=== PATIENT | female | born 1980 | race African-American/Black ===

== ENCOUNTER → 2016-03-19 | Outpatient (REF) | payer OTHER ==
[~2016-03-19] MED LIST: PERC5TAB6 PO; ibuprofen OR; iron OR; multivitamins OR
== END ==
LOC: M SFHCPLAZ 17:01
PROVIDERS: ATTEND Nurse Practitioner Family
DX: A60.04 Herpesviral vulvovaginitis (principal)

== ENCOUNTER → 2016-03-26 | Outpatient (REF) | payer OTHER ==
[2016-03-26 12:34] LABS: ALBUMIN 3.6 GM/DL (3.2-5.2); ALBUMIN/GLOBULIN RATIO 1.06 (1.00-1.93); ALKALINE PHOSPHATASE 122 U/L (45-117); ALT/SGPT 15 U/L (12-78); ANION GAP 9 MEQ/L (8-16); AST/SGOT 12 U/L (15-37); BILIRUBIN,TOTAL 0.2 MG/DL (0.2-1.0); BLOOD UREA NITROGEN 10 MG/DL (7-18); CALCIUM LEVEL 9.4 MG/DL (8.5-10.1); CARBON DIOXIDE LEVEL 28 MEQ/L (21-32); CHLORIDE LEVEL 100 MEQ/L (98-107); CHOLESTEROL LEVEL 127 MG/DL (<200); CREATININE FOR GFR 0.64 MG/DL (0.55-1.02); GLOMERULAR FILTRATION RATE > 60.0 (>60); GLUCOSE, FASTING 303 MG/DL (70-105); POTASSIUM SERUM 4.4 MEQ/L (3.5-5.1); SODIUM LEVEL 137 MEQ/L (136-145); TRIGLYCERIDES LEVEL 131 MG/DL (<150)
[2016-03-26 15:24] LABS: HIV SCRN NEGATIVE (NEGATIVE); HIV SCRN1 NEGATIVE (NEGATIVE)
[2016-03-26 15:25] LABS: CONTROL LINE INT CTR LINE PRESENT
== END ==
LOC: M SFHCPLAZ 08:29
PROVIDERS: ATTEND Nurse Practitioner Family
DX: E11.9 Type 2 diabetes mellitus without complications (principal); E78.5 Hyperlipidemia, unspecified; A60.04 Herpesviral vulvovaginitis; R35.0 Frequency of micturition

== ENCOUNTER → 2016-10-15 | Outpatient (REF) | payer OTHER ==
[~2016-10-15] MED LIST changes: +PERC5TAB12 PO; -PERC5TAB6 PO
[2016-10-15 12:11] LABS: ALBUMIN 3.7 GM/DL (3.2-5.2); ALBUMIN/GLOBULIN RATIO 1.03 (1.00-1.93); ALKALINE PHOSPHATASE 100 U/L (45-117); ALT/SGPT 14 U/L (12-78); ANION GAP 10 MEQ/L (8-16); AST/SGOT 9 U/L (15-37); BILIRUBIN,TOTAL 0.4 MG/DL (0.2-1.0); BLOOD UREA NITROGEN 11 MG/DL (7-18); CALCIUM LEVEL 8.9 MG/DL (8.5-10.1); CARBON DIOXIDE LEVEL 25 MEQ/L (21-32); CHLORIDE LEVEL 101 MEQ/L (98-107); CHOLESTEROL LEVEL 124 MG/DL (<200); CREATININE FOR GFR 0.61 MG/DL (0.55-1.02); GLOMERULAR FILTRATION RATE > 60.0 (>60); GLUCOSE, FASTING 251 MG/DL (70-105); SODIUM LEVEL 136 MEQ/L (136-145); TOTAL PROTEIN 7.3 GM/DL (6.4-8.2); TRIGLYCERIDES LEVEL 78 MG/DL (<150)
[2016-10-15 12:23] LABS: BASO % 0.5 % (0.0-1.0); EOS # 0.2 K/mm3 (0.0-0.50); EOS % 3.8 % (0.0-3.0); LARGE UNSTAINED CELL # 0.1 K/mm3 (0.0-0.4); LARGE UNSTAINED CELL % 1.4 % (0.0-4.0); LYMPH # 1.9 K/mm3 (1.5-4.5); LYMPH % 31.4 % (24.0-44.0); MEAN CORPUSCULAR HEMOGLOBIN 29.3 pg (27.0-33.0); MEAN CORPUSCULAR HGB CONC 33.6 g/dl (32.0-36.5); MEAN CORPUSCULAR VOLUME 87.3 fl (80.0-96.0); MONO # 0.4 K/mm3 (0.0-0.8); MONO % 7.1 % (0.0-5.0); NEUTROPHILS # 3.3 K/mm3 (1.8-7.7); NEUTROPHILS % 55.8 % (36.0-66.0); PLATELET COUNT, AUTOMATED 249 k/mm3 (150-450); RED CELL DISTRIBUTION WIDTH 12.1 % (11.5-14.5); WHITE BLOOD COUNT 5.9 K/mm3 (4.0-10.0)
== END ==
LOC: M SFHCPLAZ 07:55
PROVIDERS: ATTEND Nurse Practitioner Family
DX: E66.01 Morbid (severe) obesity due to excess calories (principal); R60.9 Edema, unspecified; E11.9 Type 2 diabetes mellitus without complications; E78.5 Hyperlipidemia, unspecified

== ENCOUNTER → 2016-11-16 | Outpatient (CLI) | payer OTHER ==
--- NOTE | 2016-11-16 16:00 | REP ---
Clinical: Pain with recent trauma. The technique: AP, lateral, bilateral oblique and sunrise views of the left knee. Findings: Age-related changes are appreciated as well as exostosis along the medial aspect of the proximal tibial metaphysis. There is no evidence for acute fracture or dislocation. No definite effusion. Impression: Age-related degenerative changes. No acute fracture or dislocation. Exostosis from the medial tibial metaphysis. Signed by Dereck Henley MD 11/16/2016 03:52 P
== END ==
LOC: M SMT 14:47
PROVIDERS: ATTEND Physician Assistant
DX: M25.562 Pain in left knee (principal); M25.762 Osteophyte, left knee

== ENCOUNTER → 2017-03-03 | Outpatient (REF) | payer OTHER ==
[2017-03-03 13:54] LABS: ESTIMATED AVERAGE GLUCOSE 240 MG/DL (60-110)
== END ==
LOC: M SFHCPLAZ 10:59
DX: E11.9 Type 2 diabetes mellitus without complications (principal)

== ENCOUNTER → 2017-07-05 | Outpatient (REF) ==
[2017-07-05 11:59] LABS: HEPATITIS B SURFACE ANTIBODY NEGATIVE (POSITIVE)
== END ==
LOC: M LAB 10:55
DX: Z00.00 Encounter for general adult medical examination without abnormal findings (principal)

== ENCOUNTER → 2017-07-23 | Outpatient (REF) | payer OTHER ==
[2017-07-23 13:04] LABS: ANION GAP 7 MEQ/L (8-16); BLOOD UREA NITROGEN 10 MG/DL (7-18); CALCIUM LEVEL 8.8 MG/DL (8.5-10.1); CARBON DIOXIDE LEVEL 26 MEQ/L (21-32); CHLORIDE LEVEL 103 MEQ/L (98-107); CREATININE FOR GFR 0.56 MG/DL (0.55-1.30); GLOMERULAR FILTRATION RATE > 60.0 (>60); GLUCOSE, FASTING 264 MG/DL (70-100); POTASSIUM SERUM 4.1 MEQ/L (3.5-5.1); SODIUM LEVEL 136 MEQ/L (136-145)
[2017-07-23 13:26] LABS: ESTIMATED AVERAGE GLUCOSE 243 MG/DL (60-110); HEMOGLOBIN A1c 10.1 %
== END ==
LOC: M SFHCPLAZ 10:08
DX: E11.9 Type 2 diabetes mellitus without complications (principal)
CPT/HCPCS: 83036

== ENCOUNTER → 2017-10-07 | Outpatient (CLI) | payer OTHER | LOC: M WHC 08:55 | DX: Z12.31 Encounter for screening mammogram for malignant neoplasm of breast (principal) | CPT/HCPCS: 77067 ==

== ENCOUNTER 2018-06-04 21:34 | Emergency (ER) | payer OTHER ==
[~2018-06-04] VITALS: Ht 167.6 cm; Wt 125.5 kg
[2018-06-04 21:34] VITALS: BP 130/70
[2018-06-04] MEDS ORDERED: TOUJ1.2I (21:39)
[2018-06-04] MEDS ORDERED: METF10004 (21:39)
[2018-06-04] MEDS ORDERED: ASPI1CHW2 (21:39)
[2018-06-04] MEDS ORDERED: LISI-1046 (21:39)
[2018-06-04] MEDS ORDERED: AUGM875T28 PO (23:23)
[2018-06-04] MEDS ORDERED: AUGMENTIN 875 MG TAB PO ONE (23:30)
== END 2018-06-04 23:30 | disposition home or self-care (01) ==
LOC: M ED 21:34
DX: T81.31XA Disruption of external operation (surgical) wound, not elsewhere classified, initial encounter (principal); Y92.9 Unspecified place or not applicable; Y93.9 Activity, unspecified; E11.9 Type 2 diabetes mellitus without complications; I10 Essential (primary) hypertension; Z79.82 Long term (current) use of aspirin; Z79.899 Other long term (current) drug therapy; Z79.84 Long term (current) use of oral hypoglycemic drugs; Z88.8 Allergy status to other drugs, medicaments and biological substances

== ENCOUNTER 2018-08-07 19:57 | Inpatient (IN) | payer OTHER ==
[~2018-08-07] VITALS: Ht 170.2 cm; Wt 125.3 kg
[~2018-08-07 19:57] MED LIST changes: +ASPI1CHW2 PO; +AUGM875T28 PO; +LISI-1046 PO; +METF10004 PO; +TOUJ1.2I SC
[2018-08-07 20:44] LABS: BASO # 0.1 10^3/uL (0.0-0.2); BASO % 0.3 % (0.0-1.0); EOS % 0.1 % (0.0-3.0); HEMATOCRIT 36.7 % (36.0-47.0); HEMOGLOBIN 12.6 g/dl (12.0-15.5); LYMPH # 1.3 10^3/uL (1.5-4.5); LYMPH % 7.3 % (24.0-44.0); MEAN CORPUSCULAR HEMOGLOBIN 29.7 pg (27.0-33.0); MEAN CORPUSCULAR HGB CONC 34.3 g/dl (32.0-36.5); MEAN CORPUSCULAR VOLUME 86.6 fl (80.0-96.0); MONO # 1.3 10^3/uL (0.0-0.8); MONO % 7.4 % (0.0-5.0); NEUTROPHILS # 14.5 10^3/uL (1.8-7.7); NEUTROPHILS % 84.4 % (36.0-66.0); PLATELET COUNT, AUTOMATED 238 10^3/uL (150-450); RED BLOOD COUNT 4.24 10^6/uL (4.00-5.40); WHITE BLOOD COUNT 17.2 10^3/uL (4.0-10.0)
[2018-08-07 21:06] LABS: ALBUMIN 3.7 GM/DL (3.2-5.2); ALT/SGPT 15 U/L (12-78); BILIRUBIN,DIRECT 0.2 MG/DL (0.0-0.2); BILIRUBIN,TOTAL 0.7 MG/DL (0.2-1.0); BLOOD UREA NITROGEN 8 MG/DL (7-18); CALCIUM LEVEL 9.1 MG/DL (8.5-10.1); CARBON DIOXIDE LEVEL 28 MEQ/L (21-32); CHLORIDE LEVEL 95 MEQ/L (98-107); GLOMERULAR FILTRATION RATE > 60.0 (>60); GLUCOSE, FASTING 340 MG/DL (70-100); LIPASE 59 U/L (73-393); POTASSIUM SERUM 4.2 MEQ/L (3.5-5.1); SODIUM LEVEL 132 MEQ/L (136-145); TOTAL PROTEIN 7.2 GM/DL (6.4-8.2)
[2018-08-07] MEDS ORDERED: NS 1,000 ML IV ONE (21:45)
[2018-08-07] MEDS ORDERED: KETOROLAC 30 MG/ML VIAL (J1885) IV ONE (21:45)
[2018-08-07 22:02] LABS: INFLUENZA A AMPLIFICATION NEGATIVE (NEGATIVE); INFLUENZA B AMPLIFICATION NEGATIVE (NEGATIVE)
[2018-08-07 22:09] LABS: VENOUS BASE EXCESS 0.1 (-2.0-2.0); VENOUS HCO3 24.1 MEQ/L (23.0-27.0); VENOUS O2 SATURATION 87.5 % (60.0-80.0); VENOUS PARTIAL PRESSURE CO2 36.9 mmHg (38.0-50.0); VENOUS PARTIAL PRESSURE O2 51.7 mmHg (30.0-50.0); VENOUS PH 7.432 UNITS (7.330-7.430); VENOUS STANDARD HCO3 24.3 MEQ/L; VENOUS TOTAL CO2 25.2 MEQ/L (24.0-28.0)
[2018-08-07 22:26] LABS: MONO REFLEX EBV COMP NEGATIVE (NEGATIVE)
[2018-08-07] MEDS ORDERED: ACETAMINOPHEN TAB 650MG DOSE (2X325MG) PO ONE (22:30)
--- NOTE | 2018-08-07 22:51 | REPVR ---
EXAM: CT Abdomen and Pelvis Without Contrast EXAM DATE/TIME: 08/07/2018 9:39 PM CLINICAL HISTORY: 37 years old, female; Abdominal pain; Flank; Left; Additional info: Flank pain, urinary complaints TECHNIQUE: Imaging protocol: Axial computed tomography images of the abdomen and pelvis without contrast. Coronal and sagittal reformatted images were created and reviewed. Radiation optimization: All CT scans at this facility use at least one of these dose optimization techniques: automated exposure control; mA and/or kV adjustment per patient size (includes targeted exams where dose is matched to clinical indication); or iterative reconstruction. COMPARISON: CT ABD PELVIS W/O FOL BY WIT 02/21/2015 9:35 AM FINDINGS: Mediastinum: Small hiatal hernia. ABDOMEN: Liver: Mild hepatomegaly. Gallbladder and bile ducts: No radiodense gallstones. No biliary ductal dilatation. Pancreas: Unremarkable. Spleen: Mild splenomegaly. Adrenals: Mild nonspecific bilateral adrenal thickening, likely secondary to benign hyperplasia. Kidneys and ureters: Mild nonspecific bilateral perinephric stranding. 1.1 cm left renal cyst. No radiodense calculi. No hydronephrosis. Stomach and bowel: Moderate amount of retained stool in the colon. No obstruction. No bowel wall thickening. No pneumatosis. Appendix: Appendix not identified with certainty but no right lower quadrant inflammatory change to suggest acute appendicitis. PELVIS: Bladder: Mild circumferential urinary bladder wall thickening, possibly secondary to underdistention. Reproductive: Unremarkable. ABDOMEN and PELVIS: Intraperitoneal space: No free fluid. No organized fluid collection. No free air. Bones/joints: No acute osseous abnormality. Mild degenerative changes. Soft tissues: Small, fat-containing umbilical hernia. Vasculature: Unremarkable. No aneurysm. Lymph nodes: No pathologically enlarged lymph nodes. Other findings: Elevated right hemidiaphragm. IMPRESSION: 1. Limited noncontrast examination without CT evidence of urolithiasis. 2. Mild circumferential urinary bladder wall thickening, possibly secondary to underdistention. Correlate with urinalysis to exclude cystitis. 3. Mild nonspecific bilateral perinephric stranding. Infection/pyelonephritis cannot be excluded without intravenous contrast. 4. Additional findings, as above. Electronically signed by: Varun Hughes On 08/07/2018 22:50:34 PM
[2018-08-07] MEDS ORDERED: PIPERACILLIN/TAZOBACTAM SOD 3.375 GM in D5W MINI-BAG PLUS 50 ML IV ONE (23:00)
--- NOTE | 2018-08-07 23:08 | HPEPDOC ---
General Date of Admission Date of Service: Aug 07, 2018 Chief Complaint The patient is a 37-year-old female admitted with a reason for visit of Back Pain. Source: Patient, RN/MD, Old records History of Present Illness Ms. Metz is a 37 years old woman who presents to ER with c/o fever, chills, generalized weakness, dysuria, frequency, bilateral flank pain, and sore throat. Pt c/o pain on swallowing solid food, but is not drooling or having any respiratory problems. Pt has hx/u UTI and complications in the past. In the ER, pt had normal BP and mental status, with mild sinus tachycardia in the range of 110-120/min; fever of 101.9F. WBC 17.2. CT abd: mild perinephric stranding b/l and urinary bladder wall thickening consistent with cystitis. Lactate and renal fx are normal. Throat swab was positive for Strep A. 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 BOB, UROLOGY UMBILICAL HERNIA ONE ABN PAP/COLP WNL 2012 REENA ON NOCTURNAL POLYSOMNOGRAPHY IN 2016; DIDN'T F/U WITH PULM ALLERGIES OXYBUTYNIN: DIZZINESS/CELLULOID TRIMMER RESPONSE: SIDE EFFECTS SURGICAL HISTORY APPENDECTOMY AGE 7 MONTHS D&C AFTER SABS CERVICAL CERCLAGE X 2 C SECTION X 2 2006,2008 TUBAL LIGATION 2009 HYSTERECTOMY-PARTIAL, FOR FIBROIDS - DR. TALBERT 09/2014 STENT URETHRAL-DR. BOB 11/2014 Family History Significant Family History: No pertinent family hx Social History * Smoker: current smoker Alcohol: Denies Drugs: denies A-FIB/CHADSVASC A-FIB History Current/History of A-Fib/PAF?: No Review of Systems Constitutional: Reports: Chills, Fever, Malaise, Weakness, Fatigue; Denies: Lethargy Eyes: Denies: Pain ENT: Reports: Sore Throat; Denies: Head Aches Skin: Denies: Rash, Lesions Pulmonary: Denies: Dyspnea, Cough Cardiovascular: Denies: Chest Pain, Edema Gastrointestinal: Denies: Nausea, Vomiting, Abdominal Pain, Diarrhea, Constipation Genitourinary: Reports: Dysuria, Frequency; Denies: Hematuria Musculoskeletal: Reports: Back Pain; Denies: Neck Pain Neurological: Reports: Weakness; Denies: Change in speech, Confusion Psych: Reports: Mood Normal; Denies: Anxiety Physical Examination General Exam: Positive: Alert, Cooperative, No Acute Distress Eye Exam: Positive: PERRLA ENT Exam: Positive: Atraumatic, Other ENT (enlarged tonsils b/l with erythema and exudate) Neck Exam: Positive: Supple; Negative: JVD Chest Exam: Positive: Clear to auscultation, Normal air movement Heart Exam: Positive: Rate Normal, Regular Rhythm Abdomen Exam: Positive: Normal bowel sounds, Soft; Negative: Tenderness Extremity Exam: Positive: Normal pulses; Negative: Edema Skin Exam: Negative: Nl turgor and temperature, Rash, Breakdown Neuro Exam: Positive: Normal Speech, Strength at 5/5 X4 ext, Normal Tone Psych Exam: Positive: Mental status NL, Mood NL Vital Signs Vital Signs Date Time Temp Pulse Resp B/P (MAP) Pulse Ox O2 Delivery O2 Flow Rate FiO2 08/07/18 22:26 101.9 08/07/18 20:50 08/07/18 19:57 112 16 98 Room Air Laboratory Data Labs 24H Laboratory Tests 2 08/07/18 20:33: Urine Color YELLOW, Urine Appearance CLEAR, Urine pH 5.0, Urine Specific [place] 1.040, Urine Protein NEGATIVE, Urine Glucose (UA) 3+H, Urine Ketones 1+H, Urine Blood NEGATIVE, Urine Nitrite NEGATIVE, Urine Bilirubin NEGATIVE, Urine Urobilinogen 4.0H, Urine Leukocyte Esterase 1+H, Urine WBC (Auto) 17H, Urine RBC (Auto) 3, Urine Hyaline Casts (Auto) 0, Urine Bacteria (Auto) NEGATIVE, Urine Squamous Epithelial Cells 0, Urine Mucus (Auto) SMALL, Urine Sperm (Auto) 08/07/18 20:38: Immature Granulocyte % (Auto) 0.5, White Blood Count 17.2H, Red Blood Count 4.24, Hemoglobin 12.6, Hematocrit 36.7, Mean Corpuscular Volume 86.6, Mean Corpuscular Hemoglobin 29.7, Mean Corpuscular Hemoglobin Concent 34.3, Red Cell Distribution Width 11.5, Platelet Count 238, Neutrophils (%) (Auto) 84.4H, Lymphocytes (%) (Auto) 7.3L, Monocytes (%) (Auto) 7.4H, Eosinophils (%) (Auto) 0.1, Basophils (%) (Auto) 0.3, Neutrophils # (Auto) 14.5H, Lymphocytes # (Auto) 1.3L, Monocytes # (Auto) 1.3H, Eosinophils # (Auto) 0.0, Basophils # (Auto) 0.1, Nucleated Red Blood Cells % (auto) 0.0, Anion Gap 9, Glomerular Filtration Rate > 60.0, Calcium Level 9.1, Aspartate Amino Transf (AST/SGOT) 9, Alanine Aminotransferase (ALT/SGPT) 15, Alkaline Phosphatase 104, Total Bilirubin 0.7, Direct Bilirubin 0.2, Total Protein 7.2, Albumin 3.7, Albumin/Globulin Ratio 1.06, Lipase 59L 08/07/18 20:40: Influenza Type A (RT-PCR) NEGATIVE, Influenza Type B (RT-PCR) NEGATIVE 08/07/18 21:40: Lactic Acid Level 1.2, Monoscreen NEGATIVE 08/07/18 21:43: Blood Gas Bicarbonate Standard 24.3, Venous Blood pH 7.432H, Venous Blood Partial Pressure CO2 36.9L, Venous Blood Partial Pressure O2 51.7H, Venous Blood Total Carbon Dioxide 25.2, Venous Blood HCO3 24.1, Venous Blood Oxygen Satura tion 87.5H, Venous Blood Base Excess 0.1 CBC/BMP Laboratory Tests 08/07/18 20:38 Red Blood Count 4.24, Mean Corpuscular Volume 86.6, Mean Corpuscular Hemoglobin 29.7, Mean Corpuscular Hemoglobin Concent 34.3, Red Cell Distribution Width 11.5, Neutrophils (%) (Auto) 84.4 H, Lymphocytes (%) (Auto) 7.3 L, Monocytes (%) (Auto) 7.4 H, Eosinophils (%) (Auto) 0.1, Basophils (%) (Auto) 0.3, Neutrophils # (Auto) 14.5 H, Lymphocytes # (Auto) 1.3 L, Monocytes # (Auto) 1.3 H, Eosinophils # (Auto) 0.0, Basophils # (Auto) 0.1 Microbiology Microbiology 08/07/18 Blood Culture, Received Pending 08/07/18 Blood Culture, Received Pending 08/07/18 Urine Culture, Received Pending Assessment/Plan 1. Bilateral Pyelonephritis and Cystitis without Complication 2. Strep A Pharyngitis/ Tonsillitis 3. IDDM-2, Uncontrolled - Admit to inpatient - IV Zosyn, IV fluid - F/U blood and urine c/s - Monitor signs of sepsis - Levemir and SSI Plan / VTE VTE Prophylaxis Ordered?: Yes Plan Anticipated Discharge: Home REAGAN POTTS MD Aug 07, 2018 23:08
[2018-08-07] MEDS ORDERED: SODIUM CHLORIDE 0.9% 1000ML IV ONE (23:15)
[2018-08-07] MEDS ORDERED: GLUCOSE 4 GM CHEW TABLET PO PRN (23:30)
[2018-08-07] MEDS ORDERED: DEXTROSE 50% 50 ML SYRINGE IV PRN (23:30)
[2018-08-07] MEDS ORDERED: ONDANSETRON 4MG/2ML VIAL (J2405) IV PRN (23:30)
[2018-08-07] MEDS ORDERED: GLUCAGON FOR INJ 1 MG VIAL (J1610) SC PRN (23:30)
[2018-08-08] VITALS (7 sets, daily range): BP systolic 126–142; BP diastolic 69–88
[2018-08-08] MEDS: NS 1,000 ML IV SCH ×4 (00:01→23:26)
[2018-08-08] MEDS: HumaLOG INSULIN (NovoLOG) PER UNIT SC SCH ×5 (00:01→21:00)
[2018-08-08] MEDS: PIPERACILLIN/TAZOBACTAM SOD 3.375 GM in D5W MINI-BAG PLUS 50 ML IV SCH ×4 (04:31→23:26)
[2018-08-08] MEDS: PERCOCET 5MG/325MG TAB PO PRN ×2 (06:31→20:15)
[2018-08-08 06:54] LABS: BASO % 0.1 % (0.0-1.0); EOS # 0.1 10^3/uL (0.0-0.50); EOS % 0.5 % (0.0-3.0); HEMATOCRIT 33.2 % (36.0-47.0); HEMOGLOBIN 11.3 g/dl (12.0-15.5); LYMPH # 1.1 10^3/uL (1.5-4.5); LYMPH % 7.5 % (24.0-44.0); MEAN CORPUSCULAR HEMOGLOBIN 29.1 pg (27.0-33.0); MEAN CORPUSCULAR VOLUME 85.6 fl (80.0-96.0); MONO # 1.2 10^3/uL (0.0-0.8); MONO % 8.8 % (0.0-5.0); NEUTROPHILS # 11.6 10^3/uL (1.8-7.7); NEUTROPHILS % 82.5 % (36.0-66.0); PLATELET COUNT, AUTOMATED 216 10^3/uL (150-450); RED BLOOD COUNT 3.88 10^6/uL (4.00-5.40); WHITE BLOOD COUNT 14.1 10^3/uL (4.0-10.0)
[2018-08-08 07:21] LABS: ALBUMIN 2.6 GM/DL (3.2-5.2); ALT/SGPT 11 U/L (12-78); BILIRUBIN,TOTAL 0.6 MG/DL (0.2-1.0); BLOOD UREA NITROGEN 9 MG/DL (7-18); CALCIUM LEVEL 7.8 MG/DL (8.5-10.1); CARBON DIOXIDE LEVEL 24 MEQ/L (21-32); CHLORIDE LEVEL 102 MEQ/L (98-107); CREATININE FOR GFR 0.75 MG/DL (0.55-1.30); GLOMERULAR FILTRATION RATE > 60.0 (>60); GLUCOSE, FASTING 335 MG/DL (70-100); POTASSIUM SERUM 3.9 MEQ/L (3.5-5.1); SODIUM LEVEL 134 MEQ/L (136-145); TOTAL PROTEIN 6.5 GM/DL (6.4-8.2)
[2018-08-08] MEDS ORDERED: ISOVUE-370 76% 100ML VIAL (Q9967) As Ordered ONE (08:12)
[2018-08-08] MEDS: ASPIRIN 81 MG ENTERIC TAB PO SCH (09:18)
[2018-08-08] MEDS: LEVEMIR (INSULIN DETEMIR) 1 UNITS/0.01ML SC SCH (09:18)
--- NOTE | 2018-08-08 09:27 | REP ---
CT neck with contrast History: Possible abscess Contrast: Isovue 370 75 ml There is mild enlargement of the tonsils. There is extension of the tonsillar enlargement into the soft palate. There is inferior extension into the lateral bustamante of the oral and upper hypopharynx. There is mild mass effect on the oral and upper hypopharynx. There is prominence of the adenoidal tissue in the nasopharynx. The larynx and subglottic trachea are normal in appearance. There is enlargement of the left parotid gland. The right parotid and submandibular glands are normal in size and density. A 5 mm hypodensity is present in the left thyroid lobe. This most likely represents a cyst. The right thyroid lobe is normal in size and density. An enlarged lymph node 120 cm is present in the right internal jugular chain at the level of the oral and hypopharynx. Enlarged lymph node 1.8 cm in width is present in the left internal jugular chain at the level of the oral and hypopharynx. Small lymph nodes less than 1 cm in size are present in the posterior triangles, submandibular and submental areas. Parenchymal density is present in the right upper lobe. This is incompletely seen in this examination. This may represent an infiltrate. The sinuses are clear. Impression 1. The above findings are consistent with tonsillitis and lymphadenitis. There is mild mass effect on the jeimy and upper hypopharynx. 2. There is enlargement of the left parotid gland . An underlying mass cannot be excluded. 3. There is parenchymal density in the right upper lobe that is incompletely seen in this examination. This may represent an infiltrate. Chest x-ray is recommended for further evaluation. Electronically Signed by Denton Milligan MD 08/08/2018 09:19 A
[2018-08-08] MEDS: ALBUTEROL SULFATE 2.5 MG/0.5 ML INH NEB SOLN INH PRN (11:19)
--- NOTE | 2018-08-08 12:06 | IPNPDOC ---
Text Note Date of Service The patient was seen on 08/08/18. NOTE SUBJECTIVE: Patient is laying in bed on her phone, she states her left flank a nida hurts and her right burnette is sensitive to the touch, she also complains of continued pain in her throat. Otherwise patient denies chest pain, shortness breath, nausea, vomiting, fevers, chills. OBJECTIVE PHYSICAL EXAMINATION: VITAL SIGNS: Please see below. GENERAL: Pleasant 37 y/o F sitting up in bed awake alert oriented speaking in complete sentences no acute distress HEENT: Moist mucous membranes, no JVD, EOMI, grossly inflamed b/l cam and tonsillar area with exudates CARDIOVASCULAR: S1 S2 regular no additional heart sounds appreciated RESPIRATORY: Clear to auscultation bilaterally, no wheezing, rales or crackles ABDOMINAL: nabsx4, no pain to palpation, no rebound ridgity or guarding, no distension, no hepatosplenomegaly or masses, obese, left flank area seems sensitive to deep palpation, no swelling or erythema of area EXTREMITIES: No clubbing cyanosis or edema, pain on right LE anterior tibial surface without swelling or erythema, right MCP somewhat tender to palpation without erythema or swelling NEUROLOGICAL: Spontaneously moves all 4 extremities, no focal deficits appre ciated PSYCHOLOGICAL: Appropriate LABORATORY DATA, MICROBIOLOGY: Please see below. ASSESSMENT AND PLAN: This is a 37 yo female who presented to the ED with painful swallowing and urination with a sore throat, fever and chills and found to be positive for strep A throat infection with UTI/pyelonephritis. PROBLEMS: 1. 1. Bilateral Pyelonephritis and Cystitis without Complication -She does complain of increased frequency to urinate with scant quantity of urine actually voided, no blood or pain with urination, she does have left sided flank area pain that is somewhat bothersome more with urination, or attempts to strain. She continues on IV Zosyn, U/A suspicious for UTI, blood and urince cx p ending, WBC 14.1 but afebrile now. Positive for Strep A on throat swab. Oxycodone for pain control. 2. Painful right anterior tibial area and right first MTP -will send for uric acid, likely secondary to neuropathy, will begin gabapentin 3. DM2- -C/w Levemir and SSI DISPOSITION: Pending CT of neck, c/w IV abx for now. VS,Fishbone, I+O VS, Fishbone, I+O Laboratory Tests 08/07/18 20:38 Red Blood Count 4.24, Mean Corpuscular Volume 86.6, Mean Corpuscular Hemoglobin 29.7, Mean Corpuscular Hemoglobin Concent 34.3, Red Cell Distribution Width 11.5, Neutrophils (%) (Auto) 84.4 H, Lymphocytes (%) (Auto) 7.3 L, Monocytes (%) (Auto) 7.4 H, Eosinophils (%) (Auto) 0.1, Basophils (%) (Auto) 0.3, Neutrophils # (Auto) 14.5 H, Lymphocytes # (Auto) 1.3 L, Monocytes # (Auto) 1.3 H, Eosinophils # (Auto) 0.0, Basophils # (Auto) 0.1 08/08/18 06:30 Red Blood Count 3.88 L, Mean Corpuscular Volume 85.6, Mean Corpuscular Hemoglobin 29.1, Mean Corpuscular Hemoglobin Concent 34.0, Red Cell Distribution Width 11.4 L, Neutrophils (%) (Auto) 82.5 H, Lymphocytes (%) (Auto) 7.5 L, Monocytes (%) (Auto) 8.8 H, Eosinophils (%) (Auto) 0.5, Basophils (%) (Auto) 0.1, Neutrophils # (Auto) 11.6 H, Lymphocytes # (Auto) 1.1 L, Monocytes # (Auto) 1.2 H, Eosinophils # (Auto) 0.1, Basophils # (Auto) 0.0, Calcium Level 7.8 L, Aspartate Amino Transf (AST/SGOT) 20, Alanine Aminotransferase (ALT/SGPT) 11 L, Alkaline Phosphatase 93, Total Bilirubin 0.6, Total Protein 6.5, Albumin 2.6 #L Vital Signs Date Time Temp Pulse Resp B/P (MAP) Pulse Ox O2 Delivery O2 Flow Rate FiO2 08/08/18 08:00 99.1 88 18 136/69 (91) 99 08/07/18 23:11 Room Air I&O- Last 24 Hours up to 6 AM 08/08/18 06:00 Intake Total 2420 ml Output Total 450 ml Balance 1970 ml GME ATTESTATION GME ATTESTATION My faculty preceptor for this patient encounter was physically present during the encounter and was fully available. All aspects of the patient interview, examination, medical decision making process, and medical care plan development were reviewed and approved by the faculty preceptor. The faculty preceptor is aware and concurs with the plan as stated in the body of this note and will attest to such by his/her cosignature. ATTENDING NOTE I, Jhonatan Browne, have both independently examined this patient as well as reviewed the documentation. I have discussed in detail with the resident the findings and plan of treatment as documented in the residents documentation and agree with what is stated. I will continue to follow the patient and offer further guidance to the patients care as necessary during this hospital stay. MAYA AVILA DO Aug 08, 2018 12:06 JHONATAN BROWNE MD Aug 08, 2018 17:27
[2018-08-08 12:46] LABS: URIC ACID 3.1 MG/DL (2.6-6.0)
[2018-08-08] MEDS: ACETAMINOPHEN TAB 650MG DOSE (2X325MG) PO PRN ×2 (13:59→23:34)
[2018-08-08] MEDS: GABAPENTIN 300 MG CAP PO SCH (20:14)
[2018-08-09 04:00] VITALS: BP 165/86
[2018-08-09] MEDS: PIPERACILLIN/TAZOBACTAM SOD 3.375 GM in D5W MINI-BAG PLUS 50 ML IV SCH ×4 (05:48→22:40)
[2018-08-09 08:00] VITALS: BP 148/82
[2018-08-09 08:11] LABS: BASO % 0.2 % (0.0-1.0); EOS # 0.3 10^3/uL (0.0-0.50); EOS % 2.3 % (0.0-3.0); HEMATOCRIT 34.1 % (36.0-47.0); HEMOGLOBIN 11.5 g/dl (12.0-15.5); LYMPH # 1.3 10^3/uL (1.5-4.5); LYMPH % 8.7 % (24.0-44.0); MEAN CORPUSCULAR HEMOGLOBIN 29.3 pg (27.0-33.0); MEAN CORPUSCULAR HGB CONC 33.7 g/dl (32.0-36.5); MEAN CORPUSCULAR VOLUME 86.8 fl (80.0-96.0); MONO # 1.4 10^3/uL (0.0-0.8); MONO % 9.9 % (0.0-5.0); NEUTROPHILS # 11.3 10^3/uL (1.8-7.7); NEUTROPHILS % 77.9 % (36.0-66.0); PLATELET COUNT, AUTOMATED 210 10^3/uL (150-450); RED BLOOD COUNT 3.93 10^6/uL (4.00-5.40); WHITE BLOOD COUNT 14.4 10^3/uL (4.0-10.0)
[2018-08-09 08:33] LABS: BLOOD UREA NITROGEN 4 MG/DL (7-18); CALCIUM LEVEL 8.6 MG/DL (8.5-10.1); CARBON DIOXIDE LEVEL 26 MEQ/L (21-32); CHLORIDE LEVEL 102 MEQ/L (98-107); CREATININE FOR GFR 0.61 MG/DL (0.55-1.30); GLOMERULAR FILTRATION RATE > 60.0 (>60); GLUCOSE, FASTING 225 MG/DL (70-100); MAGNESIUM LEVEL 1.8 MG/DL (1.8-2.4); POTASSIUM SERUM 3.5 MEQ/L (3.5-5.1); SODIUM LEVEL 136 MEQ/L (136-145)
[2018-08-09] MEDS: HumaLOG INSULIN (NovoLOG) PER UNIT SC SCH ×4 (08:58→20:22)
[2018-08-09] MEDS: ASPIRIN 81 MG ENTERIC TAB PO SCH (08:58)
[2018-08-09] MEDS: LEVEMIR (INSULIN DETEMIR) 1 UNITS/0.01ML SC SCH (08:58)
[2018-08-09] MEDS: ALBUTEROL SULFATE 2.5 MG/0.5 ML INH NEB SOLN INH PRN ×2 (09:04→16:44)
--- NOTE | 2018-08-09 10:11 | IPNPDOC ---
Text Note Date of Service The patient was seen on 08/09/18. NOTE ENT consult requested. 37 yo without prior hx of strep or tonsillits adminted two days ago with acute strep pharyngitis and pyleonephritis A CT did NOT show a CLINICAL REHAB LIAISON and she has been on IV abx. She is apparently doing better from a throat standpoint with less pain, not hot potato voice and no odynophagia I have reviewed the CT and her lab evaluation. She was in the rest room when I came by but said her throat was doing better and she had no voice changes consistent with tonsil abscess. I would treat her like a routine strep throat with 10 days of PCN class antibiotic. She will not need urgent ENT care and can be followed as an outpatient VSFelipe I+O VSFelipe I+O Laboratory Tests 08/09/18 07:50 Red Blood Count 3.93 L, Mean Corpuscular Volume 86.8, Mean Corpuscular Hemoglobin 29.3, Mean Corpuscular Hemoglobin Concent 33.7, Red Cell Distribution Width 11.4 L, Neutrophils (%) (Auto) 77.9 H, Lymphocytes (%) (Auto) 8.7 L, Monocytes (%) (Auto) 9.9 H, Eosinophils (%) (Auto) 2.3, Basophils (%) (Auto) 0.2, Neutrophils # (Auto) 11.3 H, Lymphocytes # (Auto) 1.3 L, Monocytes # (Auto) 1.4 H, Eosinophils # (Auto) 0.3, Basophils # (Auto) 0.0, Calcium Level 8.6 Vital Signs Date Time Temp Pulse Resp B/P (MAP) Pulse Ox O2 Delivery O2 Flow Rate FiO2 08/09/18 09:00 18 08/09/18 08:00 100.0 89 148/82 (104) 98 08/07/18 23:11 Room Air I&O- Last 24 Hours up to 6 AM0 08/09/18 06:00 Intake Total 3675 ml Output Total 3700 ml Balance -25 ml MARCUS CARDOZA MD Aug 09, 2018 10:11
--- NOTE | 2018-08-09 11:35 | IPNPDOC ---
Text Note Date of Service The patient was seen on 08/09/18. NOTE SUBJECTIVE: Patient is in the bathroom washing up, she states her throat pain is improving, hot coffee actually makes it feel better. She has some left sided flank pain but that is only with urination and is improving. She says her foot pain improved after gabapentin and isn't bothering her any longer. She did have some right sided chest pain this morning that resolved with a breathing treatment, it came on suddenly when she was in bed and was worse with deep inspiration and physical palpation of the area, which she points to just above right breast/chest wall area. Otherwise patient shortness breath, nausea, vomiting, fevers, chills. Denies change in voice or trouble swallowing from pain, no excessive drooling noted by patient. ROS: 12 point ROS reviewed with patient and negative except for above. OBJECTIVE PHYSICAL EXAMINATION: VITAL SIGNS: Please see below. GENERAL: Pleasant 37 y/o F sitting up in bed after washing up in bathroom, awake alert oriented speaking in complete sentences no acute distress HEENT: Moist mucous membranes, no JVD, EOMI, inflamed b/l cam and tonsillar area with exudates but improving, some submandibular adenopathy CARDIOVASCULAR: S1 S2 regular no additional heart sounds appreciated RESPIRATORY: Clear to auscultation bilaterally, no wheezing, rales or crackles, some tenderness on left flank area without swelling, erythema or bruising ABDOMINAL: nabsx4, no pain to palpation, no rebound ridgity or guarding, no distension, no hepatosplenomegaly or masses, obese, left flank area seems sensitive to deep palpation, no swelling or erythema of area EXTREMITIES: No clubbing cyanosis or edema, no more pain on right LE anterior ti bial surface nor right MCP NEUROLOGICAL: Spontaneously moves all 4 extremities, no focal deficits a ppreciated PSYCHOLOGICAL: Appropriate LABORATORY DATA, MICROBIOLOGY: Please see below. ASSESSMENT AND PLAN: This is a 37 yo female who presented to the ED with painful swallowing and urination with a sore throat, fever and chills and found to be positive for strep A throat infection with UTI/pyelonephritis. PROBLEMS: 1. 1. Bilateral Pyelonephritis and Cystitis without Complication -Improvement in increased frequency, some minimal pain with urination, more discomfort in left flank area that resolves after voiding. No blood or urethral pain with urination. She continues on IV Zosyn, U/A suspicious for UTI, blood and urince cx pending, WBC 14.4 but afebrile now, was febrile overnight to 102. 4. Positive for Strep A on throat swab. Oxycodone for pain control. CT neck did show tonsillitis and lymphadenitis. There is mild mass effect on the jeimy and upper hypopharynx. There is enlargement of the left parotid gland . An underlying mass cannot be excluded. ENT has seen pt., appreciate their help, recommend 10 day course PEN abx once d/c. We will monitor overnight for 24 hour resolution of fever before d/c, anticipate d.c in am. 2. Parenchymal density in the right upper lobe -Noted incidentally on CT neck, incompletely seen in this examination. This may represent an infiltrate. But less likely so. -CP improved with breathing treatment, no coughing complaints of pt., O2 sat is good on RA -will obtain CXR for further delineation 2. Painful right anterior tibial area and right first MTP -Normal uric acid - likely secondary to neuropathy, c/w gabapentin as the pt states this helped the pain and it is now resolved 3. DM2- - c/w Levemir and SSI 4. SOB with History of Asthma ; possibly 2/2 PNA - Patient had reported some wheezing and pleuritic type chest pain - Has had improvement of symptoms after a single nebulization - Will get CXR - Start Incentive spirometry DISPOSITION: She should be monitored for 24 hours after febrile event last night, if afebrile, then plan for d/c am. VS,[place], I+O VS, Fishbone, I+O Laboratory Tests 08/09/18 07:50 Red Blood Count 3.93 L, Mean Corpuscular Volume 86.8, Mean Corpuscular Hemogl obin 29.3, Mean Corpuscular Hemoglobin Concent 33.7, Red Cell Distribution Width 11.4 L, Neutrophils (%) (Auto) 77.9 H, Lymphocytes (%) (Auto) 8.7 L, Monocytes (%) (Auto) 9.9 H, Eosinophils (%) (Auto) 2.3, Basophils (%) (Auto) 0.2, Neutrophils # (Auto) 11.3 H, Lymphocytes # (Auto) 1.3 L, Monocytes # (Auto) 1.4 H, Eosinophils # (Auto) 0.3, Basophils # (Auto) 0.0, Calcium Level 8.6 Vital Signs Date Time Temp Pulse Resp B/P (MAP) Pulse Ox O2 Delivery O2 Flow Rate FiO2 08/09/18 09:00 18 08/09/18 08:00 100.0 89 148/82 (104) 98 08/07/18 23:11 Room Air I&O- Last 24 Hours up to 6 AM 08/09/18 05:59 Intake Total 5045 ml Output Total 4050 ml Balance 995 ml GME ATTESTATION GME ATTESTATION My faculty preceptor for this patient encounter was physically present during the encounter and was fully available. All aspects of the patient interview, examination, medical decision making process, and medical care plan development were reviewed and approved by the faculty preceptor. The faculty preceptor is aware and concurs with the plan as stated in the body of this note and will at test to such by his/her cosignature. ATTENDING NOTE I, Jhonatan Browne, have both independently examined this patient as well as reviewed the documentation. I have discussed in detail with the resident the findings and plan of treatment as documented by the resident. I agree with their findings and treatment plan. I will continue to follow the patient and offer further guidance to the patients care as necessary during this hospital stay. MAYA AVILA DO Aug 09, 2018 11:35 JHONATAN BROWNE MD Aug 09, 2018 14:26
[2018-08-09] MEDS: SENOKOT S TAB PO SCH ×2 (13:38→20:09)
[2018-08-09] MEDS: NS 1,000 ML IV SCH (16:58)
[2018-08-09 20:00] VITALS: BP 127/70
[2018-08-09] MEDS: GABAPENTIN 300 MG CAP PO SCH (20:09)
[2018-08-10] VITALS: BP 121/72
[2018-08-10 00:08] LABS: EBV AB TO NUCLEAR ANTIGEN >600.0 U/mL (0.0-17.9); EBV VIRAL CAPSID AG IgM <36.0 U/mL (0.0-35.9)
--- NOTE | 2018-08-10 01:13 | REP ---
Clinical: Chest pain. Infiltrate. Technique: PA and lateral. Findings: Basilar right upper lobe consolidation requires followup to resolution. Mediastinum and cardiac silhouette normal. No effusion. No pneumothorax. Skeletal structures intact. Impression: Basilar right upper lobe consolidation requires followup to resolution. Electronically Signed by Dereck Henley MD 08/10/2018 01:05 A
[2018-08-10] MEDS: ALBUTEROL SULFATE 2.5 MG/0.5 ML INH NEB SOLN INH PRN ×2 (01:28→10:26)
[2018-08-10 04:00] VITALS: BP 138/74
[2018-08-10] MEDS: PIPERACILLIN/TAZOBACTAM SOD 3.375 GM in D5W MINI-BAG PLUS 50 ML IV SCH ×2 (05:32→10:52)
[2018-08-10 06:47] LABS: BASO % 0.3 % (0.0-1.0); EOS # 0.3 10^3/uL (0.0-0.50); EOS % 2.8 % (0.0-3.0); HEMATOCRIT 31.7 % (36.0-47.0); HEMOGLOBIN 10.9 g/dl (12.0-15.5); LYMPH # 1.4 10^3/uL (1.5-4.5); LYMPH % 12.2 % (24.0-44.0); MEAN CORPUSCULAR HEMOGLOBIN 29.1 pg (27.0-33.0); MEAN CORPUSCULAR HGB CONC 34.4 g/dl (32.0-36.5); MEAN CORPUSCULAR VOLUME 84.8 fl (80.0-96.0); MONO # 1.2 10^3/uL (0.0-0.8); MONO % 10.5 % (0.0-5.0); NEUTROPHILS # 8.5 10^3/uL (1.8-7.7); NEUTROPHILS % 73.3 % (36.0-66.0); PLATELET COUNT, AUTOMATED 203 10^3/uL (150-450); RED BLOOD COUNT 3.74 10^6/uL (4.00-5.40); WHITE BLOOD COUNT 11.6 10^3/uL (4.0-10.0)
[2018-08-10 07:11] LABS: BLOOD UREA NITROGEN 5 MG/DL (7-18); CALCIUM LEVEL 8.4 MG/DL (8.5-10.1); CARBON DIOXIDE LEVEL 27 MEQ/L (21-32); CHLORIDE LEVEL 102 MEQ/L (98-107); GLOMERULAR FILTRATION RATE > 60.0 (>60); GLUCOSE, FASTING 223 MG/DL (70-100); MAGNESIUM LEVEL 1.6 MG/DL (1.8-2.4); POTASSIUM SERUM 3.4 MEQ/L (3.5-5.1); SODIUM LEVEL 136 MEQ/L (136-145)
[2018-08-10 08:00] VITALS: BP 133/79
[2018-08-10] MEDS ORDERED: MAG SULF 1GM/100ML (MAG RUN) 1 GM in APPROPRIATE DILUENT 1 EA IV ONE (08:00)
[2018-08-10] MEDS ORDERED: POTASSIUM CHLORIDE 10 MEQ SR TABLET PO ONE (08:00)
[2018-08-10] MEDS: NS 1,000 ML IV SCH (08:19)
[2018-08-10] MEDS: ACETAMINOPHEN TAB 650MG DOSE (2X325MG) PO PRN (08:20)
[2018-08-10] MEDS: ASPIRIN 81 MG ENTERIC TAB PO SCH (08:53)
[2018-08-10] MEDS: SENOKOT S TAB PO SCH ×2 (08:54→20:48)
[2018-08-10] MEDS: LEVEMIR (INSULIN DETEMIR) 1 UNITS/0.01ML SC SCH (08:55)
[2018-08-10] MEDS: HumaLOG INSULIN (NovoLOG) PER UNIT SC SCH ×4 (09:48→20:49)
[2018-08-10] MEDS ORDERED: VANCOMYCIN HCL 1,000 MG, VIAL MATE ADAPTER 1 EACH in D5W 250 ML IV SCH (10:45)
[2018-08-10] MEDS: predniSONE 20 MG TAB PO SCH (10:52)
[2018-08-10 11:07] LABS: ERYTHROCYTE SEDIMENTATION RATE 72 mm/hr (0-20)
--- NOTE | 2018-08-10 11:29 | IPNPDOC ---
Text Note Date of Service The patient was seen on 08/10/18. NOTE SUBJECTIVE: Patient is on her bed, sitting up, stating she is having right sided chest pain that is intermittent, she states it feels like there is fluid or phlegm that she has to cough up but she cannot. It was worse last night. She says that the chest discomfort is over her right breast area, it is better when she leans forward, she just noted it over the past 24 hours or so. She thinks that it was worsened with inspiration but not physical manipulation of the area of chest wall. No difficulty breathing. She states her breathing treatments last night didn't help the discomfort. She says her left sided flank pain is improving and actually doesn't bother her any longer, she has no pain urinating, she states her throat pain is improving. Her right anterior burnette pain was a little uncomfortable this morning but this has resided. ROS: 12 point ROS reviewed with patient and negative except for above. OBJECTIVE PHYSICAL EXAMINATION: VITAL SIGNS: Please see below. GENERAL: Pleasant 37 y/o F sitting up in bed, awake alert oriented speaking in complete sentences no acute distress, complaining of some right sided superior breast discomfort HEENT: Moist mucous membranes, no JVD, EOMI, inflamed b/l cam and tonsillar area with exudates but improving, some submandibular adenopathy which is improved today CARDIOVASCULAR: S1 S2 regular no additional heart sounds appreciated, cannot specifically appreciate friction rub RESPIRATORY: Clear to auscultation bilaterally, no wheezing, rales or crackles ABDOMINAL: nabsx4, no pain to palpation, no rebound ridgity or guarding, no distension, no hepatosplenomegaly or masses, obese, left flank area seems sensitive to deep palpation, no swelling or erythema of area EXTREMITIES: No clubbing cyanosis or edema NEUROLOGICAL: Spontaneously moves all 4 extremities, no focal deficits appreciated PSYCHOLOGICAL: Appropriate LABORATORY DATA, MICROBIOLOGY: Please see below. ASSESSMENT AND PLAN: This is a 37 yo female who presented to the ED with painful swallowing and urination with a sore throat, fever and chills and found to be positive for strep A throat infection with UTI/pyelonephritis. PROBLEMS: 1. 1. Bilateral Pyelonephritis and Cystitis without Complication and strep pharyngitis -She denies any further left flank discomfort, this has resolved. No blood or urethral pain with urination. She continues on IV Zosyn, U/A suspicious for UTI, urine cx was + for MRSA, adding on Vancomycin abx now, WBC 11.6 but afebrile now. Positive for Strep A on throat swab. Oxycodone for pain control. CT neck did show tonsillitis and lymphadenitis. There is mild mass effect on the jeimy and upper hypopharynx. There is enlargement of the left parotid gland . An underlying mass cannot be excluded. ENT has seen pt., no intervention at this point - will c/w abx; Will adjust to Levaquin and DC Zosyn - Will hold on coverage for MRSA - likely 2/2 colonization plus with a low CFU and current clinical improvement will continue with current regimen 2. Parenchymal density in the right upper lobe and right sided chest wall dis comfort -Noted incidentally on CT neck, incompletely seen in this examination. This may represent an infiltrate. But less likely so. -Pt is still complaining of right upper chest wall discomfort, no coughing complaints of pt., O2 sat is good on RA -CXR demonstrated Impression: Basilar right upper lobe consolidation requires followup to resolution- we will begin steroids for patient as could help her with her symptoms if truly PNA -her complaints a worrisome for possible pericarditis, obtaining EKG., depending on what this shows, could consider ECHO., CRP and ESR pending 2. Painful right anterior tibial area and right first MTP -Normal uric acid - likely secondary to neuropathy, c/w gabapentin 3. DM2- - c/w Levemir and SSI 4. SOB with History of Asthma ; possibly 2/2 PNA - Patient had reported some wheezing and pleuritic type chest pain as discussed above -breathing is improved, she states she is not really SOB now - Has had improvement of SOB symptoms after nebulization in past, but states nebs last night did not help her chest discomfort - c/w Incentive spirometry 5. Hypomagnesemia and hypokalemia -supplemented, if Mg low tomorrow, will begin Slow Mag PO tabs -K 3.4 continue to monitor 6. DVT px -heparin sq DISPOSITION: Pending EKG for possible pericarditis, beginning steroids, ESR and CRP pending, u cx VS,Fishbone, I+O VS, Fishbone, I+O Laboratory Tests 08/10/18 06:34 Red Blood Count 3.74 L, Mean Corpuscular Volume 84.8, Mean Corpuscular Hemoglobin 29.1, Mean Corpuscular Hemoglobin Concent 34.4, Red Cell Distribution Width 11.4 L, Neutrophils (%) (Auto) 73.3 H, Lymphocytes (%) (Auto) 12.2 L, Monocytes (%) (Auto) 10.5 H, Eosinophils (%) (Auto) 2.8, Basophils (%) (Auto) 0.3, Neutrophils # (Auto) 8.5 H, Lymphocytes # (Auto) 1.4 L, Monocytes # (Auto) 1.2 H, Eosinophils # (Auto) 0.3, Basophils # (Auto) 0.0, Calcium Level 8.4 L Vital Signs Date Time Temp Pulse Resp B/P (MAP) Pulse Ox O2 Delivery O2 Flow Rate FiO2 08/10/18 10:26 82 08/10/18 08:00 98.3 20 133/79 (97) 98 08/07/18 23:11 Room Air I&O- Last 24 Hours up to 6 AM 08/10/18 06:00 Intake Total 3090 ml Output Total 5325 ml Balance -2235 ml GME ATTESTATION GME ATTESTATION My faculty preceptor for this patient encounter was physically present during the encounter and was fully available. All aspects of the patient interview, examination, medical decision making process, and medical care plan development were reviewed and approved by the faculty preceptor. The faculty preceptor is aware and concurs with the plan as stated in the body of this note and will attest to such by his/her cosignature. ATTENDING NOTE I, Jhonatan Browne, have both independently examined this patient as well as reviewed the documentation. I have discussed in detail with the resident the findings and plan of treatment as documented by the resident. I agree with their findings and treatment plan. I will continue to follow the patient and offer further guidance to the patients care as necessary during this hospital stay. MAYA AIVLA DO Aug 10, 2018 11:29 JHONATAN BROWNE MD Aug 10, 2018 13:50
[2018-08-10 12:00] VITALS: BP 136/77
[2018-08-10] MEDS: HEPARIN SOD (PORCINE) 5000 UNITS/ML VIAL SQ SCH ×2 (12:14→20:48)
[2018-08-10 16:00] VITALS: BP 137/87
[2018-08-10] MEDS ORDERED: LevoFLOXacin 750 MG TABLET PO ONE (16:00)
--- NOTE | 2018-08-10 19:57 | ECGEPIP ---
[facility] Test Date: 2018-08-10 Pat Name: MALINI MYERS Department: Room: [place] [address] Gender: Female Project Management: CARINA : 1980 Requested By: ОЛЕГ BROWNE Order Number: [id number] Reading MD: Jamie Camarena Measurements Intervals [place] Rate: 75 P: 50 ID: [id number] QRS: 9 QRSD: 88 T: 11 QT: 376 QTc: 420 Interpretive Statements SINUS RHYTHM Normal Electronically Signed on 08-10-2018 19:56:51 EDT by Jamie Camarena
[2018-08-10] MEDS: GABAPENTIN 300 MG CAP PO SCH (20:48)
[2018-08-11] VITALS: BP 121/85
[2018-08-11 05:53] LABS: BASO % 0.3 % (0.0-1.0); EOS # 0.1 10^3/uL (0.0-0.50); EOS % 1.2 % (0.0-3.0); HEMATOCRIT 32.9 % (36.0-47.0); HEMOGLOBIN 11.1 g/dl (12.0-15.5); LYMPH # 1.8 10^3/uL (1.5-4.5); LYMPH % 17.8 % (24.0-44.0); MEAN CORPUSCULAR HEMOGLOBIN 28.8 pg (27.0-33.0); MEAN CORPUSCULAR HGB CONC 33.7 g/dl (32.0-36.5); MEAN CORPUSCULAR VOLUME 85.2 fl (80.0-96.0); MONO # 0.9 10^3/uL (0.0-0.8); MONO % 8.6 % (0.0-5.0); NEUTROPHILS # 7.1 10^3/uL (1.8-7.7); NEUTROPHILS % 70.2 % (36.0-66.0); PLATELET COUNT, AUTOMATED 239 10^3/uL (150-450); RED BLOOD COUNT 3.86 10^6/uL (4.00-5.40); WHITE BLOOD COUNT 10.1 10^3/uL (4.0-10.0)
[2018-08-11 06:00] VITALS: BP 135/83
[2018-08-11 06:15] LABS: BLOOD UREA NITROGEN 7 MG/DL (7-18); C REACTIVE PROTEIN QUANTITATIV 9.72 MG/DL (0.00-0.30); CALCIUM LEVEL 8.4 MG/DL (8.5-10.1); CARBON DIOXIDE LEVEL 30 MEQ/L (21-32); CHLORIDE LEVEL 103 MEQ/L (98-107); CREATININE FOR GFR 0.56 MG/DL (0.55-1.30); GLOMERULAR FILTRATION RATE > 60.0 (>60); GLUCOSE, FASTING 265 MG/DL (70-100); MAGNESIUM LEVEL 1.8 MG/DL (1.8-2.4); POTASSIUM SERUM 4.2 MEQ/L (3.5-5.1); SODIUM LEVEL 137 MEQ/L (136-145)
[2018-08-11 08:16] LABS: HEMOGLOBIN A1c 11.5 %
[2018-08-11] MEDS: SENOKOT S TAB PO SCH (08:39)
[2018-08-11] MEDS: HEPARIN SOD (PORCINE) 5000 UNITS/ML VIAL SQ SCH (08:39)
[2018-08-11] MEDS: ASPIRIN 81 MG ENTERIC TAB PO SCH (08:40)
[2018-08-11] MEDS: predniSONE 20 MG TAB PO SCH (08:40)
[2018-08-11 08:45] VITALS: BP 161/79
[2018-08-11] MEDS ORDERED: LEVA750T7 PO (08:53)
[2018-08-11] MEDS ORDERED: GABA-843 PO (08:53)
[2018-08-11] MEDS: HumaLOG INSULIN (NovoLOG) PER UNIT SC SCH (10:05)
[2018-08-11] MEDS: LEVEMIR (INSULIN DETEMIR) 1 UNITS/0.01ML SC SCH (10:05)
--- NOTE | 2018-08-11 10:38 | DS.PDOC ---
Discharge Summary General Date of Admission Aug 07, 2018 at 23:18 Date of Discharge Aug 11, 2018 Attending Physician: JHONATAN FOLEY MD Specialist/Consultants Involve: MARCUS CARDOZA MD Discharge Summary DISCHARGE DIAGNOSIS: 1. Bilateral Pyelonephritis and Cystitis without Complication 2. Strep A Pharyngitis/Tonsillitis 3. IDDM-2, Uncontrolled 4. Painful right anterior tibial area and right first MTP, likely secondary to neuropathy SECONDARY DIAGNOSIS: 1. Diabetes Mellitus Type 2 2. induced hypertension 3. Smoker/tobacco abuse 4. HX of fibroid tumors 5. Anemia on frequent basis, takes FESO4 OCC, pica (chews ice) 6. 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 Hall, Urology 8. Umbilical hernia 9. One Abn PAP/COLP WNL 2012 10. REENA on Nocturnal Polysomnography in 2015; didn't follow up with Pulm CONSULTANTS: ENT HOSPITAL COURSE: Ms. Metz is a 37 year old woman who presented to the ER with c/o fever, chills, generalized weakness, dysuria, frequency with scant quality of urine actually voided, bilateral flank pain, and sore throat. She denies blood on urination. Pt c/o pain on swallowing solid food but was not drooling or having any respiratory problems. Pt had history of UTI and complications in the past. In the ER, pt had normal BP and mental status, with mild sinus tachycardia in the range of 110-120/min; fever of 101.9F, WBC 17.2. Abdominal CT was preformed: mild perinephric stranding b/l and urinary bladder wall thickening consistent with cystitis. Lactate and renal fx were normal. Throat swab was positive for Strep A. Pt was started on IV Zosyn and Oxycodone for pain control. On 08.08.18, pt stated that her right burnette was sensitive to the touch and some pain in right first mtp, likely secondary to neuropathy and was given gabapentin which resolved the pain. Uric acid was normal to ro gout. ENT was consulted and neck CT was preformed, showed tonsillitis and lymphadenitis, mild mass effect on the jeimy and upper hypopharynx, enlargement of the left parotid gland, an underlying mass could be excluded, did not show LEVEL VIAL INSIDE GRINDER (abscess). ENT had recommended no further intervention at that point. On 08.09.18, pt reported right sided chest pain that came on suddenly and was worse with deep inspiration, located just above the right breast/chest wall area that resolved with leaning forward and worsened with inspiration but not necessarily physical palpation of the chest wall . She stated that it feels like there was fluid or phlegm that she had to cough up but she could not, began Incentive Spirometry. EKG did not show signs of pericarditis, esr and crp were elevated however, CRP was repeated and showed improvement later. Urine culture was positive for MRSA; however this was thought to be colonization and unlikely reason for UTI as she had shown clinical improvement without MRSA coverage. Patient was subsequently changed over to Levaquin on 08.10.18, d/c Zosyn. Pt was also found to be hypomagnesemic and hypokalemic during stay and was supplemented. She was d/c on levaquin for 8 day course and gabapentin for her likely DM2 related neuropathic pain. DISCHARGE MEDICATIONS: Please see below. ALLERGIES: Please see below. SUBJECTIVE: Patient is laying in bed, stating that she is experiencing some post-tussive nausea but otherwise feels well. She reports that the right sided chest pain has markdly improved and that she has been coughing up clear sputum intermittently. She states that she feels like there is still fluid or phlegm that she has to cough up but it has improved. Her flank pain, urgency on urination, throat pain, and right anterior burnette pain have resolved. Otherwise patient denies chest pain, shortness of breath, vomiting, fevers, and chills. She feels well and wants to go home. OBJECTIVE: PHYSICAL EXAMINATION: VITAL SIGNS: Please see below. GENERAL: Pleasant 37 y/o female laying in bed, awake, alert, and oriented speaking in complete sentences, no acute distress, complaining of some right sided superior breast/chest wall discomfort that has improved from the previous day and post-tussive nausea. HEENT: Moist mucous membranes, no JVD, EOMI, inflamed b/l cam and tonsillar area with minimal exudates that is much improved since admission, cannot appreciate further submandibular adenopathy CARDIOVASCULAR: S1 S2 regular no additional heart sounds appreciated RESPIRATORY: Clear to auscultation bilaterally, no wheezing, rales or crackles ABDOMINAL: nabsx4, no pain to palpation, no rebound ridgity or guarding, no distension, no hepatosplenomegaly or masses, obese, left flank area no longer tender to deep palpation, no swelling or erythema of area EXTREMITIES: No clubbing, cyanosis, edema NEUROLOGICAL: Spontaneously moves all 4 extremities, no focal deficits appreciated PSYCHOLOGICAL: Appropriate affect LABORATORY DATA, MICROBIOLOGY: Please see below. IMAGING STUDIES: CT Abdomen and Pelvis without Contrast: IMPRESSION: 1. Limited noncontrast examination without CT evidence of urolithiasis. 2. Mild circumferential urinary bladder wall thickening, possibly secondary to underdistention. Correlate with urinalysis to exclude cystitis. 3. Mild nonspecific bilateral perinephric stranding. Infection/pyelonephritis cannot be excluded without intravenous contrast. 4. Additional findings, as above. CT neck with contrast: Impression 1. The above findings are consistent with tonsillitis and lymphadenitis. There is mild mass effect on the jeimy and upper hypopharynx. 2. There is enlargement of the left parotid gland. An underlying mass cannot be excluded. 3. There is parenchymal density in the right upper lobe that is incompletely seen in this examination. This may represent an infiltrate. Chest x-ray is recommended for further evaluation. Chest X-ray: Impression: Basilar right upper lobe consolidation requires followup to resolution DVT prophylaxis ordered: Heparin initiated 6.07.24 ASSESSMENT AND PLAN: This is a 37 yo female who presented to the ED with painful swallowing and urination with a sore throat, fever, and chills and found to be positive for strep A throat infection with UTI/pyelonephritis. Urine culture was positive for MRSA. PROBLEMS: 1. Bilateral Pyelonephritis and Cystitis without Complication, urine culture positive for MRSA 2. Parenchymal density in right upper lobe noted on neck CT and CXR 3. Painful right anterior tibial area and right first MTP 4. SOB with History of Asthma; possibly 2/2 PNA 5. Hypomagnesemia and Hypokalemia DISPOSITION: Patient is improved and stable, eager to go home. Levofloxacin abx for 8 days, instructed to complete entire course of abx. Gabapentin continued for right LE neuropathic pain. DISCHARGE CONDITION: Improved and Stable PROGNOSIS: FOLLOW UP: - Follow up with PCP within 5-7 days of discharge - Remain compliant with treatment plan and medications - Return to the ER if you experience any problems ACTIVITY: As prior to admission DIET: As prior to admission TIME SPENT ON DISCHARGE: 40 minutes Vital Signs/I&Os Vital Signs Date Time Temp Pulse Resp B/P (MAP) Pulse Ox O2 Delivery O2 Flow Rate FiO2 08/11/18 08:45 97.5 82 16 161/79 (106) 98 08/07/18 23:11 Room Air I&O- Last 24 Hours up to 6 AM 08/11/18 06:00 Intake Total 3250 ml Output Total 3250 ml Balance 0 ml Laboratory Data Labs 24H Laboratory Tests 2 08/10/18 14:04: Bedside Glucose (Misc Panel) 303H 08/10/18 14:35: Urine Color YAZMIN, Urine Appearance CLEAR, Urine pH 6.0, Urine Specific [place] 1.015, Urine Protein NEGATIVE, Urine Glucose (UA) 3+H, Urine Ketones NEGATIVE, Urine Blood NEGATIVE, Urine Nitrite NEGATIVE, Urine Bilirubin NEGATIVE, Urine Urobilinogen 2.0H, Urine Leukocyte Esterase NEGATIVE, Urine WBC (Auto) 3, Urine RBC (Auto) 0, Urine Hyaline Casts (Auto) 0, Urine Bacteria (Auto) NEGATIVE, Urine Squamous Epithelial Cells 0, Urine Sperm (Auto) 08/10/18 18:14: Bedside Glucose (Misc Panel) 291H 08/10/18 20:25: Bedside Glucose (Misc Panel) 328H 08/11/18 05:27: Immature Granulocyte % (Auto) 1.9, White Blood Count 10.1H, Red Blood Count 3.86L, Hemoglobin 11.1L, Hematocrit 32.9L, Mean Corpuscular Volume 85.2, Mean Corpuscular Hemoglobin 28.8, Mean Corpuscular Hemoglobin Concent 33.7, Red Cell Distribution Width 11.2L, Platelet Count 239, Neutrophils (%) (Auto) 70.2H, Lymphocytes (%) (Auto) 17.8L, Monocytes (%) (Auto) 8.6H, Eosinophils (%) (Auto) 1.2, Basophils (%) (Auto) 0.3, Neutrophils # (Auto) 7.1, Lymphocytes # (Auto) 1.8, Monocytes # (Auto) 0.9H, Eosinophils # (Auto) 0.1, Basophils # (Auto) 0.0, Nucleated Red Blood Cells % (auto) 0.0, Anion Gap 4L, Glomerular Filtration Rate > 60.0, Estimated Mean Plasma Glucose 283H, Hemoglobin A1c 11.5, Blood Urea Nitrogen 7, Creatinine 0.56, Sodium Level 137, Potassium Level 4.2#, Chloride Level 103, Carbon Dioxide Level 30, Calcium Level 8.4L, Magnesium Level 1.8, C-Reactive Protein, Quantitative 9.72H CBC/BMP Laboratory Tests 08/11/18 05:27 Red Blood Count 3.86 L, Mean Corpuscular Volume 85.2, Mean Corpuscular Hemoglobin 28.8, Mean Corpuscular Hemoglobin Concent 33.7, Red Cell Distribution Width 11.2 L, Neutrophils (%) (Auto) 70.2 H, Lymphocytes (%) (Auto) 17.8 L, Monocytes (%) (Auto) 8.6 H, Eosinophils (%) (Auto) 1.2, Basophils (%) (Auto) 0.3 , Neutrophils # (Auto) 7.1, Lymphocytes # (Auto) 1.8, Monocytes # (Auto) 0.9 H, Eosinophils # (Auto) 0.1, Basophils # (Auto) 0.0, Calcium Level 8.4 L FSBS Laboratory Tests Test 08/10/18 14:04 08/10/18 18:14 08/10/18 20:25 Range/Units Bedside Glucose (Misc Panel) 303 291 328 70-105 MG/DL Microbiology Microbiology 08/07/18 Blood Culture - Preliminary, Resulted No Growth after 72 hours. All specime... 08/07/18 Blood Culture - Preliminary, Resulted No Growth after 72 hours. All specime... 08/09/18 Gram Stain - Final, Complete 08/09/18 Sputum Culture - Final, Complete Yeast Like Organism 08/08/18 Group A Streptococcus Screen (MARTÍNEZ) - Final, Complete 08/07/18 Urine Culture - Final, Complete Staph.aureus Methicillin Resis Discharge Medications Scheduled Aspirin (Aspirin) 81 Mg Chw, 81 MG PO DAILY, (Reported) Gabapentin (Gabapentin) 300 Mg Capsule, 300 MG PO QHS Insulin Glargine,Hum.rec.anlog (Oren Gutiérrez) 300 Unit/Ml Inj, 24 UNITS SC DAILY, (Reported) PATIENT IS UNSURE OF DOSE Levofloxacin (Levaquin) 750 Mg Tablet, 750 MG PO DAILY@1800 Lisinopril (Lisinopril) 2.5 Mg Tab, 2.5 MG PO DAILY, (Reported) Metformin HCl (Metformin HCl) 1,000 Mg Tab, 1,000 MG PO BID, (Reported) Allergies Coded Allergies: benzocaine (Unverified Allergy, Unknown, 06/04/18) GME ATTESTATION GME ATTESTATION My faculty preceptor for this patient encounter was physically present during the encounter and was fully available. All aspects of the patient interview, examination, medical decision making process, and medical care plan development were reviewed and approved by the faculty preceptor. The faculty preceptor is aware and concurs with the plan as stated in the body of this note and will attest to such by his/her cosignature. ATTENDING NOTE I, Jhonatan Foley, have both independently examined this patient as well as reviewed the documentation. I have discussed in detail with the resident the findings and plan of treatment as documented by the resident. I agree with their findings and treatment plan. I will continue to follow the patient and offer further guidance to the patients care as necessary during this hospital stay. Time spent on discharge 40 minutes TANYA ALEGRIA OMS-3 Aug 11, 2018 10:36 MAYA AVILA DO Aug 11, 2018 15:13 JHONATAN FOLEY MD Aug 11, 2018 16:52
[2018-08-11] MEDS ORDERED: LevoFLOXacin 750 MG TABLET PO SCH (18:00)
== END 2018-08-11 11:43 | disposition home or self-care (01) | DRG 113 ==
LOC: M ED 19:57 → M ED INP 23:18 → M PED 08-08 00:30
PROVIDERS: ADMIT Internal Medicine; ATTEND Internal Medicine
DX: J02.0 Streptococcal pharyngitis (principal); J18.9 Pneumonia, unspecified organism; E11.42 Type 2 diabetes mellitus with diabetic polyneuropathy; N10 Acute pyelonephritis; E11.65 Type 2 diabetes mellitus with hyperglycemia; E83.42 Hypomagnesemia; N30.00 Acute cystitis without hematuria; F17.200 Nicotine dependence, unspecified, uncomplicated; D64.9 Anemia, unspecified; M79.661 Pain in right lower leg; E87.6 Hypokalemia; G47.33 Obstructive sleep apnea (adult) (pediatric); R91.8 Other nonspecific abnormal finding of lung field; A63.0 Anogenital (venereal) warts; Z88.8 Allergy status to other drugs, medicaments and biological substances; Z79.4 Long term (current) use of insulin; Z79.82 Long term (current) use of aspirin; Z79.899 Other long term (current) drug therapy

== ENCOUNTER → 2018-08-22 | Outpatient (REF) | payer OTHER ==
[~2018-08-22] MED LIST changes: +GABA-843 PO; +LEVA750T7 PO
[2018-08-22 13:16] LABS: BASO % 0.8 % (0.0-1.0); EOS # 0.1 10^3/uL (0.0-0.50); EOS % 2.3 % (0.0-3.0); HEMATOCRIT 38.4 % (36.0-47.0); HEMOGLOBIN 12.6 g/dl (12.0-15.5); LYMPH # 1.8 10^3/uL (1.5-4.5); LYMPH % 33.6 % (24.0-44.0); MEAN CORPUSCULAR HGB CONC 32.8 g/dl (32.0-36.5); MEAN CORPUSCULAR VOLUME 88.5 fl (80.0-96.0); MONO # 0.4 10^3/uL (0.0-0.8); NEUTROPHILS # 2.9 10^3/uL (1.8-7.7); NEUTROPHILS % 55.1 % (36.0-66.0); PLATELET COUNT, AUTOMATED 276 10^3/uL (150-450); RED BLOOD COUNT 4.34 10^6/uL (4.00-5.40); WHITE BLOOD COUNT 5.3 10^3/uL (4.0-10.0)
[2018-08-22 13:42] LABS: PERCENT SATURATION 35.1 % (13.2-45.0)
[2018-08-22 13:49] LABS: CREATININE, URINE 86.9 MG/DL; MALB URINE SIEMENS 47.8 MG/L
[2018-08-22 14:29] LABS: APPEARANCE, URINE CLEAR (CLEAR); BACTERIA, URINE AUTO 1+ (NEGATIVE); BILIRUBIN, URINE AUTO NEGATIVE (NEGATIVE); BLOOD, URINE BLOOD NEGATIVE (NEGATIVE); COLOR, URINE YELLOW (YELLOW); GLUCOSE, URINE (UA) AUTO 3+ mg/dL (NEGATIVE); KETONE, URINE AUTO NEGATIVE (NEGATIVE); LEUKOCYTE ESTERASE, URINE AUTO NEGATIVE (NEGATIVE); NITRITE, URINE AUTO NEGATIVE (NEGATIVE); PROTEIN, URINE AUTO NEGATIVE (NEGATIVE); RBC, URINE AUTO 1 /HPF (0-3); SPECIFIC GRAVITY URINE AUTO 1.033 (1.002-1.035); SQUAMOUS EPITHELIAL CELL UR AU 5 /HPF (0-6); UROBILINOGEN, URINE AUTO 0.2 mg/dL (0.0-2.0); WBC, URINE AUTO 0 /HPF (0-3)
== END ==
LOC: M SFHCPLAZ 11:45
PROVIDERS: ATTEND Family Medicine
DX: N12 Tubulo-interstitial nephritis, not specified as acute or chronic (principal); N30.90 Cystitis, unspecified without hematuria; D50.9 Iron deficiency anemia, unspecified; R68.83 Chills (without fever); E11.9 Type 2 diabetes mellitus without complications

== ENCOUNTER 2018-10-23 14:39 | Emergency (ER) | payer OTHER ==
[~2018-10-23] VITALS: Ht 167.6 cm; Wt 123.5 kg
[2018-10-23] MEDS ORDERED: BASA100I (14:48)
[2018-10-23] MEDS ORDERED: ATOR1TAB21 (14:48)
[2018-10-23 16:46] VITALS: BP 135/78
--- NOTE | 2018-10-24 10:05 | REP ---
LEFT KNEE, COMPLETE: 10/23/2018. Clinical history: Trauma, patient fell. Comparison: 11/16/2016. Findings five views are provided. There is no patellar subluxation or dislocation and no fracture. I cannot confirm a joint effusion on the lateral view. No narrowing of the medial lateral compartment. Small marginal osteophytes are noted throughout. There is a proximal tibial metaphyseal osteochondroma off the medial aspect of the proximal tibia best seen on the frontal view. This distal tip is unchanged and is not enlarged. There are no destructive lesions associated with it. Impression: 1. Mild tricompartment arthritis without joint space narrowing, fracture, loose body or definite joint effusion by plain film. 2. 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 This is a benign bone lesion. Electronically Signed by Sha Chilel MD 10/24/2018 10:19 A
== END 2018-10-23 17:33 | disposition home or self-care (01) ==
LOC: M ED 14:39
DX: S80.212A Abrasion, left knee, initial encounter (principal); X58.XXXA Exposure to other specified factors, initial encounter; Y92.89 Other specified places as the place of occurrence of the external cause; D16.22 Benign neoplasm of long bones of left lower limb; M17.12 Unilateral primary osteoarthritis, left knee; Z79.899 Other long term (current) drug therapy; Z79.4 Long term (current) use of insulin; Z88.4 Allergy status to anesthetic agent

== ENCOUNTER 2018-11-25 12:53 | Emergency (ER) | payer OTHER ==
[~2018-11-25] VITALS: Ht 170.2 cm; Wt 122.1 kg
[~2018-11-25 12:53] MED LIST changes: +ATOR1TAB21; +BASA100I
[2018-11-25 12:54] VITALS: BP 125/76
[2018-11-25] MEDS ORDERED: CEPHALEXIN 500 MG CAP PO ONE (13:30)
[2018-11-25] MEDS ORDERED: KEFL500C17 PO (13:32)
== END 2018-11-25 13:38 | disposition home or self-care (01) ==
LOC: M ED 12:53
DX: S90.852A Superficial foreign body, left foot, initial encounter (principal); W45.8XXA Other foreign body or object entering through skin, initial encounter; Y92.098 Other place in other non-institutional residence as the place of occurrence of the external cause; E11.9 Type 2 diabetes mellitus without complications; I10 Essential (primary) hypertension; F50.89 Other specified eating disorder; Z88.6 Allergy status to analgesic agent; Z79.899 Other long term (current) drug therapy; Z79.4 Long term (current) use of insulin; Z79.82 Long term (current) use of aspirin

== ENCOUNTER 2018-12-04 14:19 | Emergency (ER) | payer OTHER, SELFPAY ==
[~2018-12-04] VITALS: Ht 170.2 cm; Wt 123.4 kg
[~2018-12-04 14:19] MED LIST changes: +KEFL500C17 PO
[2018-12-04 14:22] VITALS: BP 148/94
[2018-12-04] MEDS ORDERED: ACETAMINOPHEN 325 MG TAB PO ONE (16:15)
[2018-12-04] MEDS ORDERED: AUGMENTIN 875 MG TAB PO ONE (16:15)
[2018-12-04] MEDS ORDERED: AUGM875T28 PO (16:21)
[2018-12-04] MEDS ORDERED: AFRI0.058 (16:28)
== END 2018-12-04 16:44 | disposition home or self-care (01) ==
LOC: M ED 14:19
DX: H66.002 Acute suppurative otitis media without spontaneous rupture of ear drum, left ear (principal); J01.00 Acute maxillary sinusitis, unspecified

== ENCOUNTER → 2019-05-04 | Outpatient (CLI) | payer OTHER ==
[~2019-05-04] MED LIST changes: +AFRI0.058
--- NOTE | 2019-05-04 16:28 | REP ---
Left foot two views : There is no fracture or dislocation. Mineralization and joint spaces are normal. There are no calcifications or foreign bodies. Impression: Negative Left foot . Electronically Signed by Nakul Pradhan MD 05/04/2019 04:19 P
== END ==
LOC: M LAB 15:52
PROVIDERS: ATTEND Family Medicine
DX: M79.672 Pain in left foot (principal)

== ENCOUNTER → 2019-05-11 | Outpatient (REF) | payer OTHER ==
[2019-05-11 13:44] LABS: BASO % 0.3 % (0.0-1.0); EOS # 0.2 10^3/uL (0.0-0.5); HEMATOCRIT 39.7 % (36.0-47.0); HEMOGLOBIN 13.4 g/dl (12.0-15.5); LYMPH # 1.8 10^3/uL (1.5-5.0); LYMPH % 29.5 % (24.0-44.0); MEAN CORPUSCULAR HEMOGLOBIN 28.9 pg (27.0-33.0); MEAN CORPUSCULAR HGB CONC 33.8 g/dl (32.0-36.5); MEAN CORPUSCULAR VOLUME 85.7 fl (80.0-96.0); MONO # 0.5 10^3/uL (0.0-0.8); MONO % 8.4 % (0.0-5.0); NEUTROPHILS # 3.6 10^3/uL (1.5-8.5); NEUTROPHILS % 58.1 % (36.0-66.0); PLATELET COUNT, AUTOMATED 290 10^3/uL (150-450); RED BLOOD COUNT 4.63 10^6/uL (4.00-5.40); WHITE BLOOD COUNT 6.1 10^3/uL (4.0-10.0)
[2019-05-11 14:12] LABS: ALBUMIN 3.6 GM/DL (3.2-5.2); ALT/SGPT 14 U/L (12-78); BILIRUBIN,TOTAL 0.2 MG/DL (0.2-1.0); BLOOD UREA NITROGEN 6 MG/DL (7-18); CARBON DIOXIDE LEVEL 27 MEQ/L (21-32); CHLORIDE LEVEL 105 MEQ/L (98-107); CHOLESTEROL LEVEL 174 MG/DL (<200); CREATININE FOR GFR 0.64 MG/DL (0.55-1.30); GLOMERULAR FILTRATION RATE > 60.0 (>58); GLUCOSE, FASTING 311 MG/DL (70-100); HDL CHOLESTEROL 50 MG/DL (>40); LDL CHOLESTEROL 103 MG/DL (<100); NON-HDL-C 124 MG/DL; POTASSIUM SERUM 4.4 MEQ/L (3.5-5.1); SODIUM LEVEL 139 MEQ/L (136-145); THYROID STIMULATING HORMONE 0.902 uIU/ML (0.358-3.740); TOTAL PROTEIN 7.2 GM/DL (6.4-8.2); TRIGLYCERIDES LEVEL 107 MG/DL (<150)
[2019-05-11 14:36] LABS: HEMOGLOBIN A1c 12.2 %
== END ==
LOC: M LAB REF 12:41
PROVIDERS: ATTEND Family Medicine
DX: E11.9 Type 2 diabetes mellitus without complications (principal)

== ENCOUNTER 2019-06-25 23:11 | Emergency (ER) | payer OTHER ==
[~2019-06-25] VITALS: Ht 170.2 cm; Wt 121.4 kg
[2019-06-25] MEDS ORDERED: LIDOCAINE 4% CREAM 5GM (LMX4) TOP ONE (23:45)
--- NOTE | 2019-06-26 00:29 | REPVR ---
PROCEDURE INFORMATION: Exam: US Soft Tissue Head and Neck, Soft Tissue Exam date and time: 06/26/2019 12:09 AM Age: 38 years old Clinical indication: Mass, lump, or swelling in neck; Additional info: Posterior lad vs abscess, R side TECHNIQUE: Imaging protocol: Real-time ultrasound scan of the head and neck with image documentation. Exam focused on the soft tissue in the region of clinical concern. COMPARISON: CT Neck with contrast 08/08/2018 8:55 AM FINDINGS: Lymph nodes: Six nonspecific subcutaneous edema in the suboccipital right neck with a small reactive lymph node measuring up to 4 mm in short axis. Soft tissues: No fluid collections. IMPRESSION: Six nonspecific subcutaneous edema in the suboccipital right neck with a small reactive lymph node measuring up to 4 mm in short axis. No drainable abscess. Electronically signed by: Min Leslie On 06/26/2019 00:29:18 AM
[2019-06-26] MEDS ORDERED: ANEC4CRE3 TOP (00:45)
[2019-06-26] MEDS ORDERED: CEPHALEXIN 500 MG CAP PO ONE (00:45)
[2019-06-26] MEDS ORDERED: KEFL500C17 PO (00:45)
[2019-06-26 01:06] VITALS: BP 129/73
== END 2019-06-26 01:17 | disposition home or self-care (01) ==
LOC: M ED 23:11
DX: L03.221 Cellulitis of neck (principal); E11.9 Type 2 diabetes mellitus without complications; R59.0 Localized enlarged lymph nodes; E78.00 Pure hypercholesterolemia, unspecified; I10 Essential (primary) hypertension; G47.30 Sleep apnea, unspecified; K21.9 Gastro-esophageal reflux disease without esophagitis; Z88.8 Allergy status to other drugs, medicaments and biological substances; Z79.82 Long term (current) use of aspirin; Z79.4 Long term (current) use of insulin; Z79.899 Other long term (current) drug therapy

== ENCOUNTER → 2019-10-07 | Outpatient (CLI) | payer OTHER ==
[~2019-10-07] MED LIST changes: +ANEC4CRE3 TOP; -LISI-1046 PO; +LISI2.5T2 PO
== END ==
LOC: M LABSMTC 11:35
PROVIDERS: ATTEND Orthopaedic Surgery
DX: Z11.59 Encounter for screening for other viral diseases (principal); Z20.828 Contact with and (suspected) exposure to other viral communicable diseases

== ENCOUNTER → 2019-10-14 | Outpatient (CLI) | payer OTHER | LOC: M LABSMTC 11:40 | PROVIDERS: ATTEND Orthopaedic Surgery | DX: Z11.59 Encounter for screening for other viral diseases (principal); Z20.828 Contact with and (suspected) exposure to other viral communicable diseases | CPT/HCPCS: C9803; U0003 ==

== ENCOUNTER → 2020-02-24 | Outpatient (CLI) | payer SELFPAY | LOC: M LABSMTC 11:50 | PROVIDERS: ATTEND Pediatrics | DX: Z20.828 Contact with and (suspected) exposure to other viral communicable diseases (principal) ==

== ENCOUNTER 2020-05-31 19:50 | Emergency (ER) | payer OTHER, SELFPAY ==
[~2020-05-31] VITALS: Ht 170.2 cm; Wt 121.8 kg
[~2020-05-31 19:50] MED LIST changes: +GABA-282 PO; -GABA-843 PO
--- NOTE | 2020-05-31 21:23 | REPVR ---
PROCEDURE INFORMATION: Exam: XR Right Ankle Exam date and time: 05/31/2020 8:44 PM Age: 39 years old Clinical indication: Pain; Ankle; Right; Additional info: Pain and swelling after injury TECHNIQUE: Imaging protocol: XR Right ankle. Views: 3 or more views. COMPARISON: NE Foot, Ap, Lat 05/04/2019 4:13 PM FINDINGS: Bones/joints: Joint spaces are normal. No fracture or malalignment. Soft tissues: Mild soft tissue swelling. IMPRESSION: 1. No fracture or malalignment. 2. Mild soft tissue swelling. Electronically signed by: Blayne Olsen On 05/31/2020 21:23:32 PM
[2020-06-01] MEDS ORDERED: IBUPROFEN 600MG TAB PO ONE (00:10)
[2020-06-01] MEDS ORDERED: LIDOCAINE 4% CREAM 5GM (LMX4) TOP ONE (00:10)
[2020-06-01] MEDS ORDERED: ANEC4CRE3 TOP (00:16)
[2020-06-01] MEDS ORDERED: ACET-897 PO (00:16)
[2020-06-01 00:49] VITALS: BP 163/98
== END 2020-06-01 01:06 | disposition home or self-care (01) ==
LOC: M ED 19:50
DX: S93.491A Sprain of other ligament of right ankle, initial encounter (principal); Y92.9 Unspecified place or not applicable; Y93.9 Activity, unspecified; Y99.0 Civilian activity done for income or pay; I10 Essential (primary) hypertension; E11.9 Type 2 diabetes mellitus without complications; Z79.1 Long term (current) use of non-steroidal anti-inflammatories (NSAID); Z79.4 Long term (current) use of insulin; Z79.82 Long term (current) use of aspirin; Z79.899 Other long term (current) drug therapy; Z88.4 Allergy status to anesthetic agent

== ENCOUNTER → 2020-11-12 | Outpatient (REF) ==
[~2020-11-12] MED LIST changes: +ACET-897 PO; -LISI2.5T2 PO; +LISI2.5T9 PO
== END ==
LOC: M EMP 08:08
PROVIDERS: ATTEND Family Medicine
DX: Z11.52 Encounter for screening for COVID-19 (principal)

== ENCOUNTER → 2021-09-10 | Outpatient (CLI) | payer OTHER ==
[~2021-09-10] MED LIST changes: -AFRI0.058; +OXYM15SP2
[2021-09-10 19:21] LABS: BASO % 0.5 % (0.0-1.0); EOS # 0.2 10^3/uL (0.0-0.5); EOS % 3.8 % (0.0-3.0); HEMATOCRIT 41.4 % (36.0-47.0); HEMOGLOBIN 14.3 g/dl (12.0-15.5); LYMPH # 1.8 10^3/uL (1.5-5.0); LYMPH % 30.4 % (24.0-44.0); MEAN CORPUSCULAR HEMOGLOBIN 30.3 pg (27.0-33.0); MEAN CORPUSCULAR HGB CONC 34.5 g/dl (32.0-36.5); MEAN CORPUSCULAR VOLUME 87.7 fl (80.0-96.0); MONO # 0.4 10^3/uL (0.0-0.8); MONO % 7.6 % (2.0-8.0); NEUTROPHILS # 3.3 10^3/uL (1.5-8.5); NEUTROPHILS % 57.2 % (36.0-66.0); PLATELET COUNT, AUTOMATED 294 10^3/uL (150-450); RED BLOOD COUNT 4.72 10^6/uL (4.00-5.40); WHITE BLOOD COUNT 5.8 10^3/uL (4.0-10.0)
[2021-09-10 19:48] LABS: ALBUMIN 3.7 GM/DL (3.2-5.2); ALT/SGPT 19 U/L (12-78); BILIRUBIN,TOTAL 0.6 MG/DL (0.2-1.0); BLOOD UREA NITROGEN 9 MG/DL (7-18); CALCIUM LEVEL 9.3 MG/DL (8.5-10.1); CARBON DIOXIDE LEVEL 28 MEQ/L (21-32); CHLORIDE LEVEL 99 MEQ/L (98-107); CREATININE FOR GFR 0.71 MG/DL (0.55-1.30); GLOMERULAR FILTRATION RATE > 60.0 (>58); GLUCOSE, FASTING 302 MG/DL (70-100); LIPASE 233 U/L (73-393); POTASSIUM SERUM 4.1 MEQ/L (3.5-5.1); SODIUM LEVEL 131 MEQ/L (136-145); TOTAL PROTEIN 7.3 GM/DL (6.4-8.2)
== END ==
LOC: M WUC 15:46
PROVIDERS: ATTEND Physician Assistant
DX: R10.9 Unspecified abdominal pain (principal)

== ENCOUNTER → 2021-09-10 | Outpatient (REF) | payer OTHER | LOC: M LAB REF 19:24 | PROVIDERS: ATTEND Physician Assistant | DX: R10.9 Unspecified abdominal pain (principal) ==

== ENCOUNTER 2022-03-02 17:34 | Emergency (ER) | payer OTHER ==
[~2022-03-02] VITALS: Ht 170.2 cm; Wt 106.7 kg
[2022-03-02 18:24] LABS: BASO % 0.3 % (0.0-1.0); EOS # 0.2 10^3/uL (0.0-0.5); EOS % 3.5 % (0.0-3.0); HEMATOCRIT 40.3 % (36.0-47.0); HEMOGLOBIN 13.8 g/dl (12.0-15.5); LYMPH # 1.2 10^3/uL (1.5-5.0); LYMPH % 20.9 % (24.0-44.0); MEAN CORPUSCULAR HEMOGLOBIN 29.7 pg (27.0-33.0); MEAN CORPUSCULAR HGB CONC 34.2 g/dl (32.0-36.5); MEAN CORPUSCULAR VOLUME 86.7 fl (80.0-96.0); MONO # 0.6 10^3/uL (0.0-0.8); NEUTROPHILS # 3.7 10^3/uL (1.5-8.5); PLATELET COUNT, AUTOMATED 260 10^3/uL (150-450); RED BLOOD COUNT 4.65 10^6/uL (4.00-5.40); WHITE BLOOD COUNT 5.8 10^3/uL (4.0-10.0)
[2022-03-02 18:55] LABS: LIPASE 21 U/L (12-53)
[2022-03-02 18:58] LABS: BILIRUBIN,DIRECT 0.1 MG/DL (<0.4)
[2022-03-02 19:07] LABS: ALBUMIN 3.3 G/DL (3.2-5.2); ALKALINE PHOSPHATASE 110 U/L (46-116); ALT/SGPT 11 U/L (7.0-40); AST/SGOT 14 U/L (<34); BILIRUBIN,TOTAL 0.4 MG/DL (0.3-1.2); BLOOD UREA NITROGEN 9 MG/DL (9-23); CALCIUM LEVEL 9.2 MG/DL (8.5-10.1); CARBON DIOXIDE LEVEL 27 MMOL/L (20-31); CHLORIDE LEVEL 97 MMOL/L (98-107); CREATININE FOR GFR 0.55 MG/DL (0.55-1.30); GLOMERULAR FILTRATION RATE > 60.0 (>58); GLUCOSE, FASTING 441 MG/DL (60-100); POTASSIUM SERUM 4.1 MMOL/L (3.5-5.1); SODIUM LEVEL 133 MMOL/L (136-145)
[2022-03-02 20:32] VITALS: BP 174/92
== END 2022-03-03 01:00 | disposition left against medical advice (07) ==
LOC: M ED 17:34
DX: Z53.21 Procedure and treatment not carried out due to patient leaving prior to being seen by health care provider (principal)

== ENCOUNTER 2022-03-04 16:06 | Emergency (ER) | payer OTHER ==
[~2022-03-04] VITALS: Ht 170.2 cm; Wt 97.7 kg
[2022-03-04 21:08] LABS: HEMATOCRIT 45.6 % (36.0-47.0); HEMOGLOBIN 15.3 g/dl (12.0-15.5); MEAN CORPUSCULAR HEMOGLOBIN 29.3 pg (27.0-33.0); MEAN CORPUSCULAR HGB CONC 33.6 g/dl (32.0-36.5); MEAN CORPUSCULAR VOLUME 87.2 fl (80.0-96.0); PLATELET COUNT, AUTOMATED 244 10^3/uL (150-450); RED BLOOD COUNT 5.23 10^6/uL (4.00-5.40); WHITE BLOOD COUNT 4.7 10^3/uL (4.0-10.0)
[2022-03-04 21:30] LABS: LIPASE 23 U/L (12-53)
[2022-03-04 21:32] LABS: ALBUMIN 3.5 G/DL (3.2-5.2); ALKALINE PHOSPHATASE 103 U/L (46-116); ALT/SGPT 12 U/L (7.0-40); AST/SGOT 16 U/L (<34); BILIRUBIN,DIRECT 0.1 MG/DL (<0.4); BILIRUBIN,TOTAL 0.4 MG/DL (0.3-1.2); BLOOD UREA NITROGEN 12 MG/DL (9-23); CALCIUM LEVEL 9.5 MG/DL (8.5-10.1); CARBON DIOXIDE LEVEL 27 MMOL/L (20-31); CHLORIDE LEVEL 98 MMOL/L (98-107); CREATININE FOR GFR 0.54 MG/DL (0.55-1.30); GLOMERULAR FILTRATION RATE > 60.0 (>58); GLUCOSE, FASTING 311 MG/DL (60-100); POTASSIUM SERUM 4.3 MMOL/L (3.5-5.1); SODIUM LEVEL 133 MMOL/L (136-145); TOTAL PROTEIN 7.2 G/DL (5.7-8.2)
[2022-03-04 21:55] LABS: ATYPICAL LYMPH 6 % (0-5); EOSINOPHILS 1 % (0-3); LYMPHOCYTES 28 % (16-44); MONOCYTES 14 % (0-5); NEUTROPHILS 51 % (28-66); PLATELET CLUMPS SMALL AMT; PLATELET ESTIMATE NORMAL (NORMAL)
[2022-03-05 00:47] VITALS: BP 150/91
== END 2022-03-05 02:05 | disposition left against medical advice (07) ==
LOC: M ED 16:06
DX: Z53.21 Procedure and treatment not carried out due to patient leaving prior to being seen by health care provider (principal)

== ENCOUNTER → 2022-03-05 | Outpatient (REF) | payer OTHER | LOC: M LAB REF 11:49 | PROVIDERS: ATTEND Nurse Practitioner Family | DX: J02.9 Acute pharyngitis, unspecified (principal) ==

== ENCOUNTER → 2022-03-18 | Outpatient (REF) | payer OTHER ==
[2022-03-18 13:10] LABS: BASO % 0.6 % (0.0-1.0); EOS # 0.2 10^3/uL (0.0-0.5); EOS % 2.2 % (0.0-3.0); HEMATOCRIT 42.3 % (36.0-47.0); HEMOGLOBIN 14.2 g/dl (12.0-15.5); LYMPH # 2.2 10^3/uL (1.5-5.0); LYMPH % 32.4 % (24.0-44.0); MEAN CORPUSCULAR HEMOGLOBIN 29.4 pg (27.0-33.0); MEAN CORPUSCULAR HGB CONC 33.6 g/dl (32.0-36.5); MEAN CORPUSCULAR VOLUME 87.6 fl (80.0-96.0); MONO # 0.6 10^3/uL (0.0-0.8); MONO % 9.4 % (2.0-8.0); NEUTROPHILS # 3.8 10^3/uL (1.5-8.5); NEUTROPHILS % 55.1 % (36.0-66.0); RED BLOOD COUNT 4.83 10^6/uL (4.00-5.40); WHITE BLOOD COUNT 6.8 10^3/uL (4.0-10.0)
[2022-03-18 13:31] LABS: THYROID STIMULATING HORMONE 1.458 uIU/ML (0.55-4.78)
[2022-03-18 13:38] LABS: ALBUMIN 3.6 G/DL (3.2-5.2); ALKALINE PHOSPHATASE 86 U/L (46-116); ALT/SGPT 13 U/L (7.0-40); AST/SGOT 14 U/L (<34); BILIRUBIN,TOTAL 0.6 MG/DL (0.3-1.2); BLOOD UREA NITROGEN 9 MG/DL (9-23); CALCIUM LEVEL 9.4 MG/DL (8.5-10.1); CARBON DIOXIDE LEVEL 31 MMOL/L (20-31); CHLORIDE LEVEL 97 MMOL/L (98-107); CHOLESTEROL LEVEL 149 MG/DL (<200); CHOLESTEROL RISK RATIO 3.09 (<5); CREATININE FOR GFR 0.53 MG/DL (0.55-1.30); GLOMERULAR FILTRATION RATE > 60.0 (>58); GLUCOSE, FASTING 276 MG/DL (60-100); HDL CHOLESTEROL 48.1 MG/DL (>40); LDL CHOLESTEROL 77.1 MG/DL (<100); NON-HDL-C 101 MG/DL; POTASSIUM SERUM 5.1 MMOL/L (3.5-5.1); SODIUM LEVEL 133 MMOL/L (136-145); TOTAL PROTEIN 6.8 G/DL (5.7-8.2); TRIGLYCERIDES LEVEL 119 MG/DL (<150)
[2022-03-18 13:53] LABS: HEMOGLOBIN A1c 10.7 % (4.0-6.0)
== END ==
LOC: M LAB REF 12:24
PROVIDERS: ATTEND Pediatrics
DX: E11.69 Type 2 diabetes mellitus with other specified complication (principal); E78.5 Hyperlipidemia, unspecified

== ENCOUNTER → 2022-04-01 | Outpatient (CLI) | payer OTHER | LOC: M RAD 07:36 | PROVIDERS: ATTEND Pediatrics | DX: R10.11 Right upper quadrant pain (principal) ==

== ENCOUNTER 2022-10-27 01:52 | Emergency (ER) | payer OTHER ==
[~2022-10-27] VITALS: Ht 170.2 cm; Wt 104.5 kg
[2022-10-27 03:41] LABS: BASO % 0.6 % (0.0-1.0); EOS # 0.2 10^3/uL (0.0-0.5); EOS % 3.6 % (0.0-3.0); HEMATOCRIT 43.3 % (36.0-47.0); HEMOGLOBIN 14.9 g/dl (12.0-15.5); LYMPH # 2.5 10^3/uL (1.5-5.0); LYMPH % 38.1 % (24.0-44.0); MEAN CORPUSCULAR HEMOGLOBIN 30.1 pg (27.0-33.0); MEAN CORPUSCULAR HGB CONC 34.4 g/dl (32.0-36.5); MEAN CORPUSCULAR VOLUME 87.5 fl (80.0-96.0); MONO # 0.6 10^3/uL (0.0-0.8); MONO % 8.9 % (2.0-8.0); NEUTROPHILS # 3.1 10^3/uL (1.5-8.5); NEUTROPHILS % 48.5 % (36.0-66.0); PLATELET COUNT, AUTOMATED 264 10^3/uL (150-450); RED BLOOD COUNT 4.95 10^6/uL (4.00-5.40); WHITE BLOOD COUNT 6.4 10^3/uL (4.0-10.0)
[2022-10-27 04:08] LABS: LIPASE 25 U/L (12-53)
[2022-10-27 04:10] LABS: ALBUMIN 3.5 G/DL (3.2-5.2); ALKALINE PHOSPHATASE 80 U/L (46-116); ALT/SGPT < 9 U/L (7.0-40); AST/SGOT < 8 U/L (<34); BILIRUBIN,DIRECT 0.3 MG/DL (<0.4); BILIRUBIN,TOTAL 0.7 MG/DL (0.3-1.2); BLOOD UREA NITROGEN 8 MG/DL (9-23); CALCIUM LEVEL 9.3 MG/DL (8.5-10.1); CARBON DIOXIDE LEVEL 28 MMOL/L (20-31); CHLORIDE LEVEL 100 MMOL/L (98-107); CREATININE FOR GFR 0.54 MG/DL (0.55-1.30); GLOMERULAR FILTRATION RATE > 60.0 (>58); GLUCOSE, FASTING 212 MG/DL (60-100); POTASSIUM SERUM 3.6 MMOL/L (3.5-5.1); SODIUM LEVEL 136 MMOL/L (136-145); TOTAL PROTEIN 7.2 G/DL (5.7-8.2)
[2022-10-27 04:25] LABS: APPEARANCE, URINE HAZY (CLEAR); BACTERIA, URINE AUTO 1+ (NEGATIVE); BILIRUBIN, URINE AUTO NEGATIVE (NEGATIVE); BLOOD, URINE BLOOD 1+ (NEGATIVE); COLOR, URINE YELLOW (YELLOW); GLUCOSE, URINE (UA) AUTO 2+ mg/dL (NEGATIVE); KETONE, URINE AUTO NEGATIVE (NEGATIVE); LEUKOCYTE ESTERASE, URINE AUTO 1+ (NEGATIVE); MUCUS, URINE SMALL (NEGATIVE); NITRITE, URINE AUTO NEGATIVE (NEGATIVE); PROTEIN, URINE AUTO 2+ mg/dL (NEGATIVE); RBC, URINE AUTO 2 /HPF (0-3); SPECIFIC GRAVITY URINE AUTO 1.014 (1.002-1.035); SQUAMOUS EPITHELIAL CELL UR AU 2 /HPF (0-6); WBC, URINE AUTO 38 /HPF (0-3)
[2022-10-27] MEDS ORDERED: NS 1,000 ML IV ONE (05:40)
[2022-10-27] MEDS ORDERED: ISOVUE-370 76% 100ML VIAL As Ordered ONE ×2 (05:52→05:56)
[2022-10-27] MEDS ORDERED: KETOROLAC 30 MG/ML 1ML VIAL IV ONE (06:00)
[2022-10-27 07:00] VITALS: BP 221/111
[2022-10-27] MEDS ORDERED: DICY-61 PO (08:21)
[2022-10-27 09:00] VITALS: BP 181/100; TEMP 99.3; O2SAT 100
== END 2022-10-27 16:30 | disposition home or self-care (01) ==
LOC: M ED 01:52
DX: K58.0 Irritable bowel syndrome with diarrhea (principal); E11.9 Type 2 diabetes mellitus without complications; Z90.89 Acquired absence of other organs; Z90.710 Acquired absence of both cervix and uterus; F17.200 Nicotine dependence, unspecified, uncomplicated; Z88.8 Allergy status to other drugs, medicaments and biological substances; Z79.84 Long term (current) use of oral hypoglycemic drugs; Z79.899 Other long term (current) drug therapy
CPT/HCPCS: 74177; 80048; 80076; 81001; 83690; 85025; 87486; 87581; 87633; 87798; 96374; 99284; J1885; Q9967

== ENCOUNTER → 2022-11-11 | Outpatient (REF) | payer OTHER ==
[~2022-11-11] MED LIST changes: +DICY-61 PO
[2022-11-11 15:06] LABS: ALBUMIN 3.5 G/DL (3.2-5.2); ALKALINE PHOSPHATASE 87 U/L (46-116); ALT/SGPT 13 U/L (7.0-40); AST/SGOT 16 U/L (<34); BILIRUBIN,TOTAL 0.4 MG/DL (0.3-1.2); BLOOD UREA NITROGEN 8 MG/DL (9-23); CALCIUM LEVEL 8.7 MG/DL (8.5-10.1); CARBON DIOXIDE LEVEL 27 MMOL/L (20-31); CHLORIDE LEVEL 102 MMOL/L (98-107); CHOLESTEROL LEVEL 167 MG/DL (<200); CHOLESTEROL RISK RATIO 2.98 (<5); CREATININE FOR GFR 0.51 MG/DL (0.55-1.30); GLOMERULAR FILTRATION RATE > 60.0 (>58); GLUCOSE, FASTING 174 MG/DL (60-100); LDL CHOLESTEROL 95.4 MG/DL (<100); POTASSIUM SERUM 4.1 MMOL/L (3.5-5.1); SODIUM LEVEL 136 MMOL/L (136-145); THYROID STIMULATING HORMONE 0.746 uIU/ML (0.55-4.78); TRIGLYCERIDES LEVEL 78 MG/DL (<150)
== END ==
LOC: M LAB REF 12:28
PROVIDERS: ATTEND Pediatrics
DX: E78.5 Hyperlipidemia, unspecified (principal); E11.69 Type 2 diabetes mellitus with other specified complication

== ENCOUNTER 2022-12-12 20:01 | Emergency (ER) | payer OTHER ==
[~2022-12-12] VITALS: Ht 170.2 cm; Wt 106.9 kg
[2022-12-12 20:02] VITALS: TEMP 96.7
[2022-12-12] MEDS ORDERED: ONDANSETRON 4MG 2ML VIAL IV ONE (20:50)
[2022-12-12] MEDS ORDERED: ACETAMINOPHEN *IV* 1,000 MG in IV 1 EA IV ONE (20:50)
[2022-12-12 21:29] LABS: BASO % 0.6 % (0.0-1.0); EOS # 0.2 10^3/uL (0.0-0.5); EOS % 3.2 % (0.0-3.0); HEMATOCRIT 41.2 % (36.0-47.0); HEMOGLOBIN 14.4 g/dl (12.0-15.5); LYMPH # 2.4 10^3/uL (1.5-5.0); LYMPH % 36.2 % (24.0-44.0); MEAN CORPUSCULAR HEMOGLOBIN 30.4 pg (27.0-33.0); MEAN CORPUSCULAR VOLUME 86.9 fl (80.0-96.0); MONO # 0.6 10^3/uL (0.0-0.8); MONO % 8.8 % (2.0-8.0); NEUTROPHILS # 3.4 10^3/uL (1.5-8.5); PLATELET COUNT, AUTOMATED 286 10^3/uL (150-450); RED BLOOD COUNT 4.74 10^6/uL (4.00-5.40); WHITE BLOOD COUNT 6.6 10^3/uL (4.0-10.0)
[2022-12-12 21:52] LABS: LIPASE 24 U/L (12-53)
[2022-12-12 21:54] LABS: ALBUMIN 3.8 G/DL (3.2-5.2); ALKALINE PHOSPHATASE 81 U/L (46-116); ALT/SGPT 12 U/L (7.0-40); AST/SGOT 20 U/L (<34); BILIRUBIN,DIRECT 0.2 MG/DL (<0.4); BILIRUBIN,TOTAL 0.6 MG/DL (0.3-1.2); BLOOD UREA NITROGEN 9 MG/DL (9-23); CALCIUM LEVEL 9.3 MG/DL (8.5-10.1); CARBON DIOXIDE LEVEL 30 MMOL/L (20-31); CHLORIDE LEVEL 101 MMOL/L (98-107); CREATININE FOR GFR 0.54 MG/DL (0.55-1.30); GLOMERULAR FILTRATION RATE > 60.0 (>58); GLUCOSE, FASTING 185 MG/DL (60-100); POTASSIUM SERUM 3.7 MMOL/L (3.5-5.1); SODIUM LEVEL 137 MMOL/L (136-145); TOTAL PROTEIN 7.4 G/DL (5.7-8.2)
[2022-12-12] MEDS ORDERED: ISOVUE-370 76% 100ML VIAL As Ordered ONE (21:56)
[2022-12-13] MEDS ORDERED: PROT1TAB2 PO (01:29)
[2022-12-13] MEDS ORDERED: CEPH500C PO (01:29)
[2022-12-13] MEDS ORDERED: CEPHALEXIN 500 MG CAP PO ONE (01:30)
[2022-12-13 01:49] VITALS: BP 140/77; O2SAT 97
== END 2022-12-13 01:51 | disposition home or self-care (01) ==
LOC: M ED 20:01
DX: N39.0 Urinary tract infection, site not specified (principal); K29.70 Gastritis, unspecified, without bleeding; I10 Essential (primary) hypertension; K21.9 Gastro-esophageal reflux disease without esophagitis; E78.5 Hyperlipidemia, unspecified; K42.9 Umbilical hernia without obstruction or gangrene; K58.9 Irritable bowel syndrome, unspecified; Z79.84 Long term (current) use of oral hypoglycemic drugs; Z79.899 Other long term (current) drug therapy; Z88.8 Allergy status to other drugs, medicaments and biological substances
CPT/HCPCS: 74177; 76830; 76856; 80048; 80076; 81001; 83690; 85025; 87086; 93976; 96365; 96366; 96375; 99284; J0131; J2405; Q9967

== ENCOUNTER → 2023-02-05 | Day surgery (SDC) | payer OTHER ==
[~2023-02-05] VITALS: Ht 170.2 cm; Wt 111.6 kg
[~2023-02-05] MED LIST changes: +AMLO1TAB24; +CEPH500C PO; +LIDOCAINE 2% 100MG/5ML SDV (FOR ANES.) As Ordered ONE; +NS 1,000 ML IV ONE; +PROT1TAB2 PO; +fentaNYL 100 MCG/2 ML INJECTION As Ordered ONE; +propofoL 200 MG/20 ML VIAL As Ordered ONE
[2023-02-05 07:56] VITALS: BP 167/93; TEMP 97; O2SAT 100
== END | disposition home or self-care (01) ==
LOC: M OPP 07:31
PROVIDERS: ATTEND Surgery
DX: R10.9 Unspecified abdominal pain (principal); Z53.8 Procedure and treatment not carried out for other reasons

== ENCOUNTER 2023-07-08 11:31 | Emergency (ER) | payer OTHER ==
[~2023-07-08] VITALS: Ht 170.2 cm; Wt 111.2 kg
[~2023-07-08 11:31] MED LIST changes: +ALBU8.5H INH; -AMLO1TAB24; +AMLO1TAB24 PO; -LIDOCAINE 2% 100MG/5ML SDV (FOR ANES.) As Ordered ONE; +LISI10TA22 PO; -NS 1,000 ML IV ONE; -fentaNYL 100 MCG/2 ML INJECTION As Ordered ONE; -propofoL 200 MG/20 ML VIAL As Ordered ONE
[2023-07-08] MEDS ORDERED: ATOR1TAB19 PO (11:41)
[2023-07-08] MEDS: NS 1,000 ML IV ONE (12:46)
[2023-07-08 12:47] LABS: BASO % 0.6 % (0.0-1.0); EOS # 0.2 10^3/uL (0.0-0.5); EOS % 3.1 % (0.0-3.0); HEMATOCRIT 39.1 % (36.0-47.0); HEMOGLOBIN 13.5 g/dl (12.0-15.5); LYMPH % 28.7 % (24.0-44.0); MEAN CORPUSCULAR HEMOGLOBIN 30.1 pg (27.0-33.0); MEAN CORPUSCULAR HGB CONC 34.5 g/dl (32.0-36.5); MEAN CORPUSCULAR VOLUME 87.1 fl (80.0-96.0); MONO # 0.5 10^3/uL (0.0-0.8); MONO % 7.2 % (2.0-8.0); NEUTROPHILS # 4.1 10^3/uL (1.5-8.5); NEUTROPHILS % 60.1 % (36.0-66.0); PLATELET COUNT, AUTOMATED 238 10^3/uL (150-450); RED BLOOD COUNT 4.49 10^6/uL (4.00-5.40); WHITE BLOOD COUNT 6.8 10^3/uL (4.0-10.0)
[2023-07-08] MEDS: ONDANSETRON 4MG 2ML VIAL IV ONE (12:48)
[2023-07-08] MEDS: amLODIPine 5 MG TAB PO ONE (12:49)
[2023-07-08 13:11] LABS: ALBUMIN 3.4 G/DL (3.2-5.2); ALKALINE PHOSPHATASE 91 U/L (46-116); ALT/SGPT 18 U/L (7.0-40); AST/SGOT 21 U/L (<34); BILIRUBIN,TOTAL 0.4 MG/DL (0.3-1.2); BLOOD UREA NITROGEN 11 MG/DL (9-23); CALCIUM LEVEL 9.2 MG/DL (8.5-10.1); CARBON DIOXIDE LEVEL 27 MMOL/L (20-31); CHLORIDE LEVEL 105 MMOL/L (98-107); CREATININE FOR GFR 0.58 MG/DL (0.55-1.30); GLOMERULAR FILTRATION RATE > 60.0 (>58); GLUCOSE, FASTING 158 MG/DL (60-100); POTASSIUM SERUM 4.1 MMOL/L (3.5-5.1); SODIUM LEVEL 138 MMOL/L (136-145); TOTAL PROTEIN 6.8 G/DL (5.7-8.2)
[2023-07-08] MEDS ORDERED: MAALOX 30 ML SUSP *UDC PO ONE (13:20)
[2023-07-08] MEDS ORDERED: diphenhydrAMINE 12.5MG/5ML ELIXIR UDC PO ONE (13:20)
[2023-07-08 14:51] VITALS: BP 181/87; TEMP 97.8; O2SAT 100
[2023-07-08] MEDS: LOPERAMIDE 2 MG CAPLET PO ONE (15:01)
[2023-07-08 15:35] LABS: APPEARANCE, URINE HAZY (CLEAR); BACTERIA, URINE AUTO 1+ (NEGATIVE); BILIRUBIN, URINE AUTO NEGATIVE (NEGATIVE); BLOOD, URINE BLOOD 1+ (NEGATIVE); COLOR, URINE YELLOW (YELLOW); GLUCOSE, URINE (UA) AUTO NEGATIVE (NEGATIVE); KETONE, URINE AUTO NEGATIVE (NEGATIVE); LEUKOCYTE ESTERASE, URINE AUTO NEGATIVE (NEGATIVE); MUCUS, URINE SMALL (NEGATIVE); NITRITE, URINE AUTO NEGATIVE (NEGATIVE); PROTEIN, URINE AUTO 2+ mg/dL (NEGATIVE); RBC, URINE AUTO 1 /HPF (0-3); SPECIFIC GRAVITY URINE AUTO 1.014 (1.002-1.035); SQUAMOUS EPITHELIAL CELL UR AU 0 /HPF (0-6); UROBILINOGEN, URINE AUTO 0.2 mg/dL (0.0-2.0); WBC, URINE AUTO 9 /HPF (0-3)
== END 2023-07-08 15:12 | disposition home or self-care (01) ==
LOC: M ED 11:31
DX: A09 Infectious gastroenteritis and colitis, unspecified (principal); I25.119 Atherosclerotic heart disease of native coronary artery with unspecified angina pectoris; I10 Essential (primary) hypertension; E11.9 Type 2 diabetes mellitus without complications; K58.9 Irritable bowel syndrome, unspecified; F10.10 Alcohol abuse, uncomplicated; Z79.51 Long term (current) use of inhaled steroids; Z79.1 Long term (current) use of non-steroidal anti-inflammatories (NSAID); Z79.84 Long term (current) use of oral hypoglycemic drugs; Z79.899 Other long term (current) drug therapy
CPT/HCPCS: 80053; 81001; 84702; 85025; 87486; 87581; 87633; 87798; 96361; 96374; 99283; J2405

== ENCOUNTER 2023-11-01 10:32 | Emergency (ER) | payer OTHER ==
[~2023-11-01] VITALS: Ht 167.6 cm; Wt 121.3 kg
[~2023-11-01 10:32] MED LIST changes: +ATOR1TAB19 PO; +C-251TAB PO; +MULTTAB61 PO; +PANT40TA29 PO
[2023-11-01 12:07] LABS: HEMATOCRIT 37.1 % (36.0-47.0); HEMOGLOBIN 12.9 g/dl (12.0-15.5); MEAN CORPUSCULAR HEMOGLOBIN 30.4 pg (27.0-33.0); MEAN CORPUSCULAR HGB CONC 34.8 g/dl (32.0-36.5); MEAN CORPUSCULAR VOLUME 87.3 fl (80.0-96.0); PLATELET COUNT, AUTOMATED 252 10^3/uL (150-450); RED BLOOD COUNT 4.25 10^6/uL (4.00-5.40); WHITE BLOOD COUNT 6.2 10^3/uL (4.0-10.0)
[2023-11-01 12:27] LABS: LIPASE 23 U/L (12-53)
[2023-11-01 12:29] LABS: ALBUMIN 3.6 G/DL (3.2-5.2); ALKALINE PHOSPHATASE 100 U/L (46-116); ALT/SGPT 15 U/L (7.0-40); AST/SGOT 24 U/L (<34); BILIRUBIN,DIRECT < 0.1 MG/DL (<0.4); BILIRUBIN,TOTAL 0.3 MG/DL (0.3-1.2); BLOOD UREA NITROGEN 14 MG/DL (9-23); CALCIUM LEVEL 9.2 MG/DL (8.5-10.1); CARBON DIOXIDE LEVEL 26 MMOL/L (20-31); CHLORIDE LEVEL 104 MMOL/L (98-107); CREATININE FOR GFR 0.59 MG/DL (0.55-1.30); GLOMERULAR FILTRATION RATE > 60.0 (>58); GLUCOSE, FASTING 177 MG/DL (60-100); POTASSIUM SERUM 4.2 MMOL/L (3.5-5.1); SODIUM LEVEL 135 MMOL/L (136-145); TOTAL PROTEIN 7.3 G/DL (5.7-8.2)
[2023-11-01] MEDS: NS 1,000 ML IV ONE (12:46)
[2023-11-01] MEDS: ONDANSETRON 4MG 2ML VIAL IV ONE (12:46)
[2023-11-01 12:52] LABS: BASO # 0.1 10^3/uL (0.0-0.2); BASO % 0.8 % (0.0-1.0); EOS # 0.2 10^3/uL (0.0-0.5); EOS % 3.1 % (0.0-3.0); LYMPH # 1.6 10^3/uL (1.5-5.0); LYMPH % 26.5 % (24.0-44.0); MONO # 0.5 10^3/uL (0.0-0.8); MONO % 8.8 % (2.0-8.0); NEUTROPHILS # 3.7 10^3/uL (1.5-8.5); NEUTROPHILS % 60.3 % (36.0-66.0)
[2023-11-01 12:55] LABS: PLATELET ESTIMATE NORMAL (NORMAL)
[2023-11-01 13:09] LABS: MONO SCRN NEGATIVE (NEGATIVE)
[2023-11-01 13:28] LABS: APPEARANCE, URINE HAZY (CLEAR); BACTERIA, URINE AUTO 3+ (NEGATIVE); BILIRUBIN, URINE AUTO NEGATIVE (NEGATIVE); BLOOD, URINE BLOOD 1+ (NEGATIVE); COLOR, URINE YELLOW (YELLOW); GLUCOSE, URINE (UA) AUTO 1+ mg/dL (NEGATIVE); KETONE, URINE AUTO NEGATIVE (NEGATIVE); LEUKOCYTE ESTERASE, URINE AUTO 1+ (NEGATIVE); NITRITE, URINE AUTO POSITIVE (NEGATIVE); PROTEIN, URINE AUTO 2+ mg/dL (NEGATIVE); RBC, URINE AUTO 4 /HPF (0-3); SQUAMOUS EPITHELIAL CELL UR AU 1 /HPF (0-6); UROBILINOGEN, URINE AUTO 0.2 mg/dL (0.0-2.0); WBC, URINE AUTO 21 /HPF (0-3)
[2023-11-01] MEDS: cefTRIAXone SOD 1 GM in D5W MINI-BAG PLUS 50 ML IV ONE (14:23)
[2023-11-01 14:25] VITALS: BP 160/90
[2023-11-01] MEDS: amLODIPine 5 MG TAB PO ONE (14:25)
[2023-11-01] MEDS ORDERED: ONDA-282 PO (14:41)
[2023-11-01] MEDS ORDERED: CEFD1CAP9 PO (14:41)
[2023-11-01 15:13] VITALS: BP 160/90; TEMP 97; O2SAT 100
[2023-11-01] MEDS ORDERED: NORV5TAB PO (15:13)
[2023-11-01] MEDS ORDERED: LISI10TA22 PO (15:13)
== END 2023-11-01 15:34 | disposition home or self-care (01) ==
LOC: M ED 10:32
DX: N39.0 Urinary tract infection, site not specified (principal); I10 Essential (primary) hypertension; K21.9 Gastro-esophageal reflux disease without esophagitis; K58.9 Irritable bowel syndrome, unspecified; E11.9 Type 2 diabetes mellitus without complications; D25.9 Leiomyoma of uterus, unspecified; Z91.048 Other nonmedicinal substance allergy status; Z79.52 Long term (current) use of systemic steroids; Z79.2 Long term (current) use of antibiotics; Z79.82 Long term (current) use of aspirin; Z79.4 Long term (current) use of insulin; Z79.811 Long term (current) use of aromatase inhibitors; Z79.899 Other long term (current) drug therapy
CPT/HCPCS: 80048; 80076; 81001; 83690; 85027; 86308; 87486; 87581; 87633; 87798; 87880; 96361; 96365; 96375; 99283; J0696; J2405

== ENCOUNTER → 2024-03-06 | Outpatient (REF) | payer OTHER, SELFPAY ==
[~2024-03-06] MED LIST changes: +CEFD1CAP9 PO; +GABA-1172 PO; -GABA-282 PO; +NORV5TAB PO; +ONDA-282 PO
[2024-03-06 17:02] LABS: ALBUMIN 3.4 G/DL (3.2-5.2); ALKALINE PHOSPHATASE 96 U/L (35-104); ALT/SGPT 15 U/L (7.0-40); AST/SGOT 16 U/L (<34); BILIRUBIN,TOTAL 0.6 MG/DL (0.3-1.2); BLOOD UREA NITROGEN 14 MG/DL (9-23); CALCIUM LEVEL 9.2 MG/DL (8.5-10.1); CARBON DIOXIDE LEVEL 29 MMOL/L (20-31); CHLORIDE LEVEL 102 MMOL/L (98-107); CHOLESTEROL LEVEL 202 MG/DL (<200); CHOLESTEROL RISK RATIO 3.01 (<5); CREATININE FOR GFR 0.64 MG/DL (0.55-1.30); GLOMERULAR FILTRATION RATE > 60.0 (>58); GLUCOSE, FASTING 186 MG/DL (60-100); HDL CHOLESTEROL 66.9 MG/DL (>40); LDL CHOLESTEROL 116.3 MG/DL (<100); NON-HDL-C 135.1 MG/DL; POTASSIUM SERUM 4.1 MMOL/L (3.5-5.1); SODIUM LEVEL 138 MMOL/L (136-145); TOTAL PROTEIN 7.3 G/DL (5.7-8.2); TRIGLYCERIDES LEVEL 94 MG/DL (<150)
[2024-03-06 17:04] LABS: THYROID STIMULATING HORMONE 1.079 uIU/ML (0.55-4.78); VITAMIN B12 LEVEL 325 PG/ML (211-911)
[2024-03-06 17:20] LABS: HEMOGLOBIN A1c 8.1 % (4.0-6.0)
[2024-03-06 17:27] LABS: CREATININE, URINE 123.8 MG/DL
[2024-03-06 17:38] LABS: MAU/CREAT RATIO 623.5 MCG/MG (0.0-30.0)
== END ==
LOC: M LAB REF 16:06
PROVIDERS: ATTEND Pediatrics
DX: I10 Essential (primary) hypertension (principal); E11.69 Type 2 diabetes mellitus with other specified complication; Z79.891 Long term (current) use of opiate analgesic

== ENCOUNTER → 2024-05-11 | Outpatient (CLI) | payer MEDICAID, OTHER | LOC: M WHC 12:21 | PROVIDERS: ATTEND Pediatrics | DX: E04.2 Nontoxic multinodular goiter (principal) ==

== ENCOUNTER → 2024-06-21 | Outpatient (CLI) | payer OTHER ==
[2024-06-21 12:39] LABS: FREE T4 1.25 NG/DL (0.89-1.76); THYROID STIMULATING HORMONE 0.579 uIU/ML (0.55-4.78)
[2024-06-21 12:41] LABS: TOTAL T3 105.7 NG/DL (60.0-181.0)
[2024-06-21 12:42] LABS: THYROGLOBULIN ANTIBODY < 15.0 U/ML (<60.0); THYROID PEROXIDASE ANTIBODY < 28.0 U/ML (<60.0)
== END ==
LOC: M LAB 11:35
PROVIDERS: ATTEND Otolaryngology
DX: E04.1 Nontoxic single thyroid nodule (principal)

== ENCOUNTER 2025-01-13 12:54 | Emergency (ER) | payer OTHER ==
[~2025-01-13] VITALS: Ht 170.2 cm; Wt 123.4 kg
[~2025-01-13 12:54] MED LIST changes: +IBUP200T46 PO; +NAPR-837 PO
[2025-01-13 13:05] VITALS: TEMP 98
[2025-01-13 14:00] LABS: KETONE, URINE AUTO RFX NEGATIVE (NEGATIVE); MUCUS, URINE RFX SMALL (NEGATIVE); RBC, URINE AUTO RFX 3 /HPF (0-3); SQUAM EPITHELIAL CELL UR AURFX 2 /HPF (0-6)
[2025-01-13 14:01] LABS: LEUKOCYTE ESTERASE UR AUTO RFX 2+ (NEGATIVE); NITRITE, URINE AUTO RFX POSITIVE (NEGATIVE); WBC, URINE AUTO RFX 41 /HPF (0-3)
[2025-01-13 14:06] LABS: HYALINE CAST, URINE RFX NONE SEEN /lpf (0-1); MICROSCOPIC EXAM RFX PERFORMED; SQUAMOUS EPITHELIAL URINE RFX SMALL AMOUNT /hpf (SMALL AMT); TRICHOMONAS, URINE RFX SMALL AMOUNT; WBC, URINE MAN RFX 20-30 /hpf (0-3)
[2025-01-13 15:05] LABS: Trichomonas vaginalis (AMP) POSITIVE (NEGATIVE)
[2025-01-13] MEDS: ONDANSETRON 4MG/2ML VIAL IV ONE (15:20)
[2025-01-13] MEDS: MAALOX 30 ML SUSP *UDC PO ONE (15:20)
[2025-01-13] MEDS: SUCRALFATE SUSP 1GM/10ML UD PO ONE (15:20)
[2025-01-13] MEDS: LIDOCAINE VISCOUS 2% SOLN 15 ML UDC PO ONE (15:20)
[2025-01-13 15:32] LABS: BASO # 0.0 10^3/uL (0.0-0.2); BASO % 0.5 % (0.0-1.0); EOS # 0.3 10^3/uL (0.0-0.5); EOS % 3.3 % (0.0-3.0); LYMPH # 2.6 10^3/uL (1.5-5.0); LYMPH % 34.5 % (24.0-44.0); MONO # 0.6 10^3/uL (0.0-0.8); MONO % 7.8 % (2.0-8.0); NEUTROPHILS # 4.1 10^3/uL (1.5-8.5); NEUTROPHILS % 53.4 % (36.0-66.0); PLATELET COUNT, AUTOMATED 308 10^3/uL (150-450)
[2025-01-13 15:41] LABS: GC DNA AMPLIFICATION NEGATIVE (NEGATIVE)
[2025-01-13] MEDS ORDERED: ISOVUE-370 76% 100 ML VIAL As Ordered ONE (15:49)
[2025-01-13 15:53] VITALS: O2SAT 100
[2025-01-13 16:05] LABS: ALT/SGPT 16 U/L (7.0-40); AST/SGOT 21 U/L (<34)
[2025-01-13 16:31] LABS: HCG, SERUM QUALITATIVE NEGATIVE (NEGATIVE)
[2025-01-13 16:38] LABS: HIV 1&2 SCREEN NEGATIVE (NEGATIVE)
[2025-01-13 17:30] VITALS: BP 172/88
[2025-01-13] MEDS ORDERED: NITR100C3 PO (17:43)
[2025-01-13] MEDS ORDERED: METR-265 PO (17:43)
[2025-01-13] MEDS ORDERED: PANT40TA29 PO (17:45)
[2025-01-13] MEDS ORDERED: SUCR1SS PO (17:45)
[2025-01-13] MEDS: NITROFURANTOIN 100 MG CAP PO ONE (17:52)
== END 2025-01-13 18:07 | disposition home or self-care (01) ==
LOC: M ED 12:54
DX: K21.9 Gastro-esophageal reflux disease without esophagitis (principal); N30.00 Acute cystitis without hematuria; A59.9 Trichomoniasis, unspecified; K42.9 Umbilical hernia without obstruction or gangrene; E11.9 Type 2 diabetes mellitus without complications; I10 Essential (primary) hypertension; K58.9 Irritable bowel syndrome, unspecified; Z91.09 Other allergy status, other than to drugs and biological substances; Z79.1 Long term (current) use of non-steroidal anti-inflammatories (NSAID); Z79.84 Long term (current) use of oral hypoglycemic drugs; Z79.899 Other long term (current) drug therapy
CPT/HCPCS: 36415; 74177; 80047; 80076; 81000; 81001; 81015; 83690; 84703; 85025; 86780; 87086; 87389; 87661; 87810; 87850; 96374; 99284; J2405; Q9967

== ENCOUNTER → 2025-01-23 | Outpatient (REF) | payer OTHER ==
[~2025-01-23] MED LIST changes: +METR-265 PO; +NITR100C3 PO; +SUCR1SS PO
[2025-01-23 16:23] LABS: Trichomonas vaginalis (AMP) NOT DETECTED (NEGATIVE)
[2025-01-23 16:47] LABS: GC DNA AMPLIFICATION NEGATIVE (NEGATIVE)
[2025-01-23 16:52] LABS: CHOLESTEROL LEVEL 199.0 MG/DL (<200); CHOLESTEROL RISK RATIO 3.39 (<5); LDL CHOLESTEROL 117.6 MG/DL (<100); NON-HDL-C 140.4 MG/DL; TRIGLYCERIDES LEVEL 114.0 MG/DL (<150)
[2025-01-23 16:57] LABS: ESTIMATED AVERAGE GLUCOSE 269.0 MG/DL (60-110)
== END ==
LOC: M LAB REF 14:54
PROVIDERS: ATTEND Pediatrics
DX: A59.9 Trichomoniasis, unspecified (principal); E78.5 Hyperlipidemia, unspecified; E11.69 Type 2 diabetes mellitus with other specified complication